=== PATIENT | female | born 1975 | race African-American/Black ===

== ENCOUNTER 2016-11-22 11:55 | Emergency (ER) ==
--- NOTE | 2016-11-22 12:53 | PROVIDER DOCUMENTATION ---
HPI-Respiratory General - General Chief Complaint: Cough Stated Complaint: COUGH/CONGESTION Time Seen by Provider: 11/22/16 12:41 Source: patient Allergies/Adverse Reactions: Patient Allergies Allergy/AdvReac Type Severity Reaction Status Date / Time ketorolac tromethamine * AdvReac Mild JITTERY Verified 11/22/16 12:45 [From Toradol] Home Medications: Home Medication List Medication Instructions Recorded Confirmed Last Taken Type Hydrocodone/APAP 7.5 mg/325 mg 1 each PO Q6H PRN PRN #20 tablet 10/05/16 Unknown Rx [[place]-7.5] Pantoprazole [Protonix] 40 mg PO DAILY@0700 #90 tablet 10/05/16 11/22/16 Unknown Rx Polyethylene Glycol 3350 [Miralax] 17 gm PO DAILY #0 powder, packet 10/05/16 Unknown Rx Sucralfate [Carafate] 1 gm PO 4XDAY #120 tablet 10/05/16 11/22/16 Unknown Rx Benzonatate [Tessalon Perle] 200 mg PO QHS #20 capsule 11/22/16 Unknown Rx Guaifenesin/Pseudoephedrne HCl 1 each PO BID #30 tab.er.12h 11/22/16 Unknown Rx [Mucinex D ER Tablet] Prednisone 20 mg PO DAILY #12 tablet 11/22/16 Unknown Rx - History of Present Illness-Resp Nature of Presenting Problem: 41 y/o BF c/o cough x 6 months. Pt states she is coughing up yellow/green sputum and is worse with laying down. States that she also has "knots" on the anterior portion of her chest. Denies any other sxs, including fever/chills. Denies any CP or cardiac hx. Review of Systems - Adult - REVIEW OF SYSTEMS - ADULT Constitutional: reports: no symptoms reported. denies: chills, fever Eyes: reports: no symptoms reported. denies: blurred vision, double vision Ears, Nose, Mouth & Throat: reports: no symptoms reported. denies: ear pain, nose pain Cardiovascular: reports: no symptoms reported. denies: chest pain, palpitations Respiratory: reports: see HPI, cough. denies: shortness of breath Gastrointestinal: reports: no symptoms reported. denies: abdominal pain, nausea , vomiting Genitourinary: reports: no symptoms reported. denies: dysuria, frequency Musculoskeletal: reports: no symptoms reported. denies: joint pain, joint swelling Integumentary: reports: no symptoms reported. denies: nail changes, rash Neurological: reports: no symptoms reported. denies: numbness, paresthesia Psychiatric: reports: no symptoms reported Endocrine: reports: no symptoms reported. denies: cold intolerance, heat intolerance Hematologic/Lymphatic: reports: no symptoms reported. denies: easy bruising, prolonged bleeding Allergic/Immunologic: reports: no symptoms reported All Other Systems: Reviewed and Negative Past History - Adult - PAST MEDICAL HISTORY-ADULT Review of Records: reports: Nursing Assessment Review, Medications Reviewed Major Childhood Illnesses: reports: denies history Cardiovascular: reports: HTN Respiratory: reports: denies history Gastrointestinal: reports: GERD Obstetrical/Gynecological: reports: fibroids, ovarian cysts Genitourinary: reports: denies history Musculoskeletal: reports: denies history Neurological: reports: Seizures/Epilepsy Psychiatric: reports: bipolar, psychiatric problems, schizophrenia, other ( polysubstance abuse) Endocrine/Immune: reports: anemia (Secondary to heavy menstrual cycles. ) Other Conditions: reports: denies history - PRIOR SURGERIES/PROCEDURES Surgical/Procedure History: reports: cholecystectomy, BTL, - PRIOR HOSPITALIZATIONS Prior Hospitalizations: reports: for other non-related - IMMUNIZATION STATUS Childhood Immunizations: See Nurse Assessment Flu Vaccine: See Nurse Assessment - FAMILY HISTORY Family History: reviewed, not pertinent - SOCIAL HISTORY Smoking: cigarettes, less than 1 pack/day Provider spent 3-5 mins advising pt. on dangers of tobacco.: Discussed manners to quit use, and f/u contacts for add'l counseling. Physical Exam-General - PHYSICAL EXAM-ADULT Initial Vital Signs Reviewed: Yes - CONSTITUTIONAL General Appearance: alert, mild distress - EYES Eyes: pink conjunctivae - HEAD, EARS, NOSE, MOUTH & THROAT HENMT: normocephalic/atraumatic - NECK Neck: supple, normal inspection - RESPIRATORY Respiratory: chest non-tender, lungs clear, normal breath sounds. negative: crackles, rales, rhonchi, stridor, wheezing - CARDIOVASCULAR Cardiovascular: regular rate, rhythm - MUSCULOSKELETAL Back Exam: normal inspection Extremity: normal gait - SKIN Integumentary: normal color, normal turgor, warm/dry - NEUROLOGIC Neurologic: negative: aphasia - PSYCHIATRIC Psych/Mental Status: normal mood/affect, normal thought content, normal thought process, oriented x 3 Progress - XRAY 1 XRAY Study: Chest Impression: See EMR Report (Negative, per Dr. Jackson) Departure - Departure Time of Disposition Order: 13:08 DIAGNOSIS: Cough Disposition: HOME 01 Certified Medical Emergency: Emergent Condition: Stable Additional Instructions: Take medications as directed. Follow up with PCP for further management. Stop smoking. ED Follow Up Instructions: You have been treated by a care provider in the Emergency Department. These instructions are being provided to you so you can have an understanding of how to care for yourself upon discharge. Upon discharge from the Emergency Department, you are responsible for making arrangements for follow-up care by a physician of your choice. Take all prescribed medications as directed. Return to the Emergency Department immediately for any new or worsening symptoms. You may call the Physician Referral phone number at [phone] to obtain a list of Physicians who are taking new patients. Prescriptions: Guaifenesin/Pseudoephedrne HCl [Mucinex D ER Tablet] 1 each PO BID #30 tab.er.12h Prednisone 20 mg PO DAILY #12 tablet Benzonatate [Tessalon Perle] 200 mg PO QHS #20 capsule Referrals: None,PCP [Primary Care Provider] - Attestation - Physician/ EVELYN Attestation Patient care was provided by Advanced Practice Provider:: Yes Advanced Practice Provider:: Layne Kim Advanced Practice Provider documentation review:: The Mid-level provider documentation, treatment plan and medical decision making was reviewed by the physician who agrees with all treatment and medical decision making by the P.
[2016-11-22 13:34] VITALS: BP 151/77
--- NOTE | 2016-11-22 13:36 | Diag Imaging Result Document ---
PROCEDURE NAME: CHEST-2 VIEWS - 11/22/2016 CHEST X-RAY, 2 VIEWS: COMPARISON: 07/06/2016. FINDINGS: The lungs are normally expanded and clear. Heart size and mediastinal contours are normal. No pneumothorax or pleural effusion. IMPRESSION: Negative exam.
== END 2016-11-22 13:33 | disposition home or self-care (01) ==
LOC: ED 11:55
DX: R05 Cough (principal); R09.81 Nasal congestion; R09.3 Abnormal sputum; R22.2 Localized swelling, mass and lump, trunk; I10 Essential (primary) hypertension; K21.9 Gastro-esophageal reflux disease without esophagitis; F17.210 Nicotine dependence, cigarettes, uncomplicated; Z79.899 Other long term (current) drug therapy; Z71.6 Tobacco abuse counseling; Z87.42 Personal history of other diseases of the female genital tract
CPT/HCPCS: 71020; 99283

== ENCOUNTER 2017-01-02 04:55 | Inpatient (IN) ==
[2017-01-02] MEDS ORDERED: PHENERGAN IV ONE (04:58)
[2017-01-02] MEDS ORDERED: SODIUM CHLORIDE 0.9% INJ ONE ×2 (04:58→07:47)
[2017-01-02] MEDS ORDERED: ZOFRAN IV ONE (04:58)
[2017-01-02] MEDS ORDERED: M.V.I.-12 10 ML, FOLIC ACID 1 MG, MAGNESIUM SULFATE 1 GM, THIAMINE 100 MG in NS 1,000 ML IV ONE (04:58)
[2017-01-02] MEDS ORDERED: OFIRMEV 1000 MG/ISOTONIC SOLN 1,000 MG/100 ML BOTTLE IV ONE (05:03)
--- NOTE | 2017-01-02 05:10 | PROVIDER DOCUMENTATION ---
HPI-Abdominal Pain/GI Problem - General Stated Complaint: abd pain Time Seen by Provider: 01/02/17 04:56 Source: patient, EMS Allergies/Adverse Reactions: Patient Allergies Allergy/AdvReac Type Severity Reaction Status Date / Time ketorolac tromethamine * AdvReac Mild JITTERY Verified 01/02/17 05:09 [From Toradol] Home Medications: Home Medication List Medication Instructions Recorded Confirmed Last Taken Type NK [No Home Medications] 01/02/17 01/02/17 Unknown History - History of Present Illness-ABD Nature of Presenting Problems: pt states she woke up at 0300 with epigastric pain and non stop wretching. No fevers. No cough or sore throat. No dysuria.She states she does not drink alochol any more and does not do drugs. No dysuria although she does have some back pain Review of Systems - Adult - REVIEW OF SYSTEMS - ADULT Constitutional: denies: chills, fever Eyes: denies: discharge Ears, Nose, Mouth & Throat: denies: ear pain, sinus problem, throat pain Cardiovascular: denies: chest pain Respiratory: denies: cough, shortness of breath Gastrointestinal: reports: abdominal pain, nausea, vomiting. denies: hematemesis, diarrhea Genitourinary: denies: dysuria, flank pain Musculoskeletal: reports: back pain Integumentary: denies: rash Neurological: denies: headache/migraines Psychiatric: reports: no symptoms reported Endocrine: reports: no symptoms reported Hematologic/Lymphatic: reports: no symptoms reported Allergic/Immunologic: reports: no symptoms reported All Other Systems: Reviewed and Negative Past History - Adult - PAST MEDICAL HISTORY-ADULT Review of Records: reports: Old Records Reviewed, Nursing Assessment Review, Medications Reviewed, Social history reviewed & non-contributory. Major Childhood Illnesses: reports: denies history Cardiovascular: reports: HTN Respiratory: reports: denies history Gastrointestinal: reports: GERD Obstetrical/Gynecological: reports: fibroids, ovarian cysts Genitourinary: reports: denies history Musculoskeletal: reports: denies history Neurological: reports: Seizures/Epilepsy Psychiatric: reports: bipolar, psychiatric problems, schizophrenia, other ( polysubstance abuse) Endocrine/Immune: reports: anemia (Secondary to heavy menstrual cycles. ) Other Conditions: reports: denies history - PRIOR SURGERIES/PROCEDURES Surgical/Procedure History: reports: cholecystectomy, BTL, - PRIOR HOSPITALIZATIONS Prior Hospitalizations: reports: for other non-related - IMMUNIZATION STATUS Childhood Immunizations: See Nurse Assessment Flu Vaccine: See Nurse Assessment - FAMILY HISTORY Family History: reviewed, not pertinent Physical Exam-General - PHYSICAL EXAM-ADULT Initial Vital Signs Reviewed: Yes - CONSTITUTIONAL General Appearance: appears well, alert, no apparent distress, anxious - EYES Eyes: pink conjunctivae. negative: scleral icterus - HEAD, EARS, NOSE, MOUTH & THROAT HENMT: normocephalic/atraumatic, TMs normal, pharynx normal - NECK Neck: non-tender, full range of motion, supple, normal inspection - RESPIRATORY Respiratory: chest non-tender, lungs clear, normal breath sounds, no pleuratic chest pain, no respiratory distress, no accessory muscle use - CARDIOVASCULAR Cardiovascular: regular rate, rhythm, no edema, no murmur - GASTROINTESTINAL (ABDOMEN) Abdominal Exam: normal bowel sounds, soft, no organomegaly, no pulsatile mass, tenderness (moderate epigastric). 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 II-XII nml as tested, grossly normal, no motor/sensory deficits - PSYCHIATRIC Psych/Mental Status: normal mood/affect, normal thought content, normal thought process, oriented x 3 Progress - PLAN OF CARE/RESULTS Progress/Plan/Lab Results: Orders Category Date Time Status ALCOHOL BLOOD Stat Lab 01/02/17 04:58 Ordered CBC WITH ELECTRONIC DIFF [HEME] Stat Lab 01/02/17 04:57 Uncollected CMP [COMPREHENSIVE METABOLIC PANEL] [CHEM] Stat Lab 01/02/17 04:57 Uncollected LIPASE [CHEM] Stat Lab 01/02/17 04:58 Uncollected MAGNESIUM [CHEM] Stat Lab 01/02/17 04:57 Uncollected UA [UA NIMS W/REFLEX CULT] [URINALYSIS] Stat Lab 01/02/17 05:03 Uncollected UDS [URINE DRUG SCREEN] Stat Lab 01/02/17 05:04 Uncollected Acetaminophen [Ofirmev 1000 mg/Isotonic Soln] Med 01/02/17 05:03 Ordered 1,000 mg in 100 ml IV NOW Mvi [M.v.i.-12] 10 ml Med 01/02/17 04:58 Active Folic Acid 1 mg Magnesium Sulfate 1 gm Thiamine 100 mg 0.9% Sodium Chloride Inj [Ns] 1,000 ml IV NOW Ondansetron [Zofran] Med 01/02/17 04:58 Discontinued 8 mg IV NOW ONE Promethazine [Phenergan] Med 01/02/17 04:58 Discontinued 25 mg IV NOW ONE Sodium Chloride 0.9% Med 01/02/17 04:58 Discontinued 10 ml INJ NOW ONE Result Diagrams: 01/02/17 05:40 01/02/17 05:40 Departure - Departure Time of Disposition Decision: 07:49 DIAGNOSIS: Anemia, Abdominal pain Disposition: ADMITTED INPATIENT 09 Certified Medical Emergency: Emergent Condition: Stable
[2017-01-02 06:06] LABS: URINE CULTURE NEEDED? NO; URINE MICRO REVIEW NEEDED? NO; URINE SOURCE CLEAN CATCH
[2017-01-02 06:13] LABS: BILIRUBIN URINE NEGATIVE (NEGATIVE); BLOOD URINE LARGE (NEGATIVE); COLOR ORANGE; GLUCOSE URINE NEGATIVE (NEGATIVE); LEUKOCYTES URINE NEGATIVE (NEGATIVE); NITRITE URINE NEGATIVE (NEGATIVE); PH URINE 8.5; PROTEIN URINE 50 mg/dL (NEGATIVE); SP GRAVITY URINE 1.011; TURBIDITY URINE TURBID (CLEAR); UROBILINOGEN URINE NORMAL (NORMAL)
[2017-01-02 06:15] LABS: UR EPITHELIAL CELLS <10 /HPF (<10); URINE BACTERIA NEGATIVE /HPF; URINE RBC TNTC /HPF (<10); URINE WBC <10 /HPF (<10)
[2017-01-02 06:30] LABS: UR AMPHETAMINES QUAL NONE DETECTED (NONE DETECT); UR BARBITUATES QUAL NONE DETECTED (NONE DETECT); UR BENZODIAZEPIN QUAL NONE DETECTED (NONE DETECT); UR CANNABINOIDS QUAL PRESUMPTIVE POSITIVE (NONE DETECT); UR COCAINE QUAL NONE DETECTED (NONE DETECT); UR METHADONE QUAL NONE DETECTED (NONE DETECT); UR OPIATES QUAL NONE DETECTED (NONE DETECT); UR OXYCODONE QUAL NONE DETECTED (NONE DETECT); UR PCP QUAL NONE DETECTED (NONE DETECT)
[2017-01-02 06:35] LABS: BASO% 0.8 % (0.0-0.8); EOS% 4.5 % (0.0-10.0); HEMATOCRIT 22.9 % (37.0-47.0); HEMOGLOBIN 6.3 g/dL (12.0-16.0); LYMPH# 1.48 X1000 (1.2-3.4); LYMPH% 22.3 % (20.5-51.1); MANUAL DIFF NEEDED? NO; MCH 18.1 PG (27-31); MCHC 27.5 g/dL (33-37); MCV 65.6 FL (81-99); MONO# 0.47 X1000 (0.11-0.59); MONO% 7.1 % (1.7-9.3); MPV 10.4 FL (7.4-10.4); NEUT% 65.3 % (42.2-75.2); PLT 280 X1000 (130-400); RBC 3.49 XMIL (4.2-5.4)
[2017-01-02 06:36] LABS: MAGNESIUM 1.9 mg/dL (1.5-2.7)
[2017-01-02 06:42] LABS: AGAP 15; ALBUMIN 3.8 g/dL (3.5-5.0); ALKALINE PHOSPHATASE 77 U/L (32-104); BUN 9 mg/dL (8-22); CALCIUM 8.7 mg/dL (8.8-10.2); CHLORIDE 98 mmol/L (98-107); COSMO 274; GOT 19 U/L (10-30); GPT 11 U/L (10-36); POTASSIUM 3.9 mmol/L (3.5-5.1); SODIUM 137 mmol/L (136-145); TCO2 24 mmol/L (25-35); TOTAL BILIRUBIN 0.16 mg/dL (0.20-1.00); TOTAL PROTEIN 7.4 g/dL (6.3-8.3)
[2017-01-02] MEDS ORDERED: PROTONIX IV ONE (07:47)
[2017-01-02] MEDS ORDERED: TYLENOL PO PRN (08:31)
[2017-01-02] MEDS ORDERED: ZOFRAN IV PRN (08:31)
[2017-01-02] MEDS: NS 1,000 ML IV SCH ×2 (09:41→18:37)
[2017-01-02] MEDS: NORCO-7.5 PO PRN (09:56)
[2017-01-02] MEDS: PRILOSEC PO SCH ×2 (11:04→20:43)
[2017-01-02] MEDS: MORPHINE IV PRN ×4 (13:09→22:41)
[2017-01-02] MEDS: PHENERGAN IV PRN ×3 (13:10→22:41)
[2017-01-02] MEDS: SODIUM CHLORIDE 0.9% INJ PRN ×2 (13:10→17:48)
--- NOTE | 2017-01-02 13:48 | HISTORY AND PHYSICAL ---
DATE OF ADMISSION: 01/02/2017 SUBJECTIVE: This is a 40-year-old, who presented with abdominal pain,. Periumbilical epigastric pain, but more periumbilical. She is a 40-year-old with a history of gastroesophageal reflux disease, gastritis, hypertension, iron deficiency anemia, apparently heavy menstrual bleeding. She sees a METALS SALES REPRESENTATIVE here in [place]. She is also followed by Dr. Brian Munoz, and she is supposed to have a hysterectomy. She is also supposed to have a colonoscopy. Apparently smokes pretty heavy and still smoking marijuana, and she has been doing this for last 10 years. Drinks about a beer every other day. She denies any weight loss. Bowels apparently are moving with no blood in the stool. No bloody emesis. She has been treated for what they thought was cyclic vomiting syndrome secondary to marijuana in the past. PAST MEDICAL HISTORY: As noted above. Gastroesophageal reflux disease, gastritis, uterine fibroids, hypertension, iron deficiency anemia, chronic anemia, acute blood loss anemia as well which is due to polymenorrhea, seizure disorder, bipolar disorder, polysubstance abuse. She has had multiple [facility] admissions. PAST SURGICAL HISTORY: She has had 3 C-sections, tubal ligation and cholecystectomy. SOCIAL HISTORY: Smokes 2-3 cigarettes a day. She is still actively smoking marijuana. States that she drinks about a beer every other day and more on the weekends. FAMILY HISTORY: Iron deficiency anemia according to the daughter, thyroid disorder, and lung cancer in her family members. ALLERGIES: Toradol. REVIEW OF SYSTEMS: General: Just basically abdominal pain and not been having as much nausea, just more abdominal pain. Feels very weak. She presented and hemoglobin was 6. No focal neurologic changes. No respiratory trouble. Cardiovascular: No chest pain or tachy palpitation. GI/: As above. Endocrinologic/Hematologic: No significant history. PHYSICAL EXAMINATION: Vital Signs: Temperature 97.8 degrees, pulse 99, respirations 22, blood pressure 172/81, O2 saturation 100%. HEENT: Pupils are equal and round. Conjunctivae with pallor; gums also with pallor. Lungs: Clear in all lung abreu. Cardiovascular exam: Regular rhythm and rate without murmur or S3. Weight 145 pounds. Skin: Otherwise warm and dry. No rashes. Lungs: Clear in all lung abreu. Abdomen: Soft. MEDICATIONS: She received some Ofirmev or IV Tylenol for pain. Got multivitamin infusion and some ondansetron and promethazine for nausea before I had seen her. LABS: White count 6650, hematocrit 22 with an MCV of 65, platelet count 280,000. Sodium 137, potassium 3.9, chloride 98, BUN 9, creatinine 0.7, calcium is 8.7. Urinalysis positive for cannabinoids, negative for opiates, oxycodone, methadone, barbiturates, phencyclidine, amphetamines, and plasma ethanol. Urinalysis with cmi-[id number]-qs-count red blood cells, negative for bacteria that was on a clean catch. CURRENT MEDICATIONS: No home medicines. ASSESSMENT AND PLAN: 1. Anemia. I suspect this is from polymenorrhea, uterine fibroids. She is apparently supposed to get a hysterectomy at some point, but also could be some gastrointestinal blood loss. I think she was also supposed to get a colonoscopy. I believe Dr. Keys saw her last time she was here. I will see if he will help us as well today, and see what we need to do about gynecology follow up. 2. Nausea, multifactorial. Very well could have some gastritis, even peptic ulcer disease, and she uses cannabinoids or marijuana. 3. Gastroesophageal reflux. Noticed that when she was here last time Dr. Arambula was involved. She had acute kidney injury at that time. Renal function appears to be good at this point, based on her creatinine/BUN. Will put her on intravenous Protonix, start some Carafate, and ask Dr. Keys to help. cc: Ankit Andrade MD
[2017-01-03] MEDS: MORPHINE IV PRN ×5 (02:15→22:28)
[2017-01-03] MEDS: PRILOSEC PO SCH ×3 (05:49→20:20)
[2017-01-03] MEDS: PHENERGAN IV PRN ×4 (05:49→20:20)
[2017-01-03] MEDS: NS 1,000 ML IV SCH ×4 (05:53→15:14)
[2017-01-03 06:09] LABS: BASO% 0.5 % (0.0-0.8); EOS% 1.3 % (0.0-10.0); HEMATOCRIT 22.8 % (37.0-47.0); HEMOGLOBIN 6.3 g/dL (12.0-16.0); LYMPH# 2.22 X1000 (1.2-3.4); LYMPH% 28.1 % (20.5-51.1); MANUAL DIFF NEEDED? NO; MCH 18.1 PG (27-31); MCHC 27.6 g/dL (33-37); MCV 65.5 FL (81-99); MONO% 8.8 % (1.7-9.3); NEUT% 61.3 % (42.2-75.2); PLT 281 X1000 (130-400); RBC 3.48 XMIL (4.2-5.4)
[2017-01-03 06:15] LABS: INR 1.04; PTT 24.5 Seconds (22.0-36.0)
[2017-01-03 06:28] LABS: AGAP 13; ALBUMIN 3.5 g/dL (3.5-5.0); ALKALINE PHOSPHATASE 70 U/L (32-104); BUN 7 mg/dL (8-22); CALCIUM 8.7 mg/dL (8.8-10.2); CHLORIDE 102 mmol/L (98-107); COSMO 275; GOT 20 U/L (10-30); GPT 10 U/L (10-36); MAGNESIUM 2.1 mg/dL (1.5-2.7); POTASSIUM 3.4 mmol/L (3.5-5.1); SODIUM 139 mmol/L (136-145); TCO2 24 mmol/L (25-35); TOTAL BILIRUBIN 0.29 mg/dL (0.20-1.00); TOTAL PROTEIN 6.6 g/dL (6.3-8.3)
--- NOTE | 2017-01-03 07:32 | EKG Report ---
Test Performed on : 01/03/2017 06:57:57 AM Test Reason : chest pain Blood Pressure : / mmHG Vent. Rate : 067 BPM Atrial Rate : 067 BPM P-R Int : 158 ms QRS Dur : 080 ms QT Int : 404 ms P-R-T Axes : 070 033 051 degrees QTc Int : 426 ms Normal sinus rhythm. Normal ECG When compared with ECG of 04-AUG-2016 00:06, No significant change was found Confirmed by Vicki BOBO, Claude Stanley ([id number]) on 01/03/2017 6:38:57 PM
[2017-01-03] MEDS ORDERED: ULTRAM PO PRN (08:48)
[2017-01-03] MEDS: SODIUM CHLORIDE 0.9% INJ PRN ×3 (10:13→20:20)
--- NOTE | 2017-01-03 10:15 | PROGRESS NOTE ---
DATE: 01/03/2017 SUBJECTIVE: Ms. Narda Eason is a 41-year-old, female, still complains of some periumbilical abdominal pain and cramping. She is requesting a change in her pain medication regimen. We will downgrade her pain medication regimen. She will receive 2 units of packed red blood cells today for acute blood loss anemia. She has no other complaints. OBJECTIVE: Vital Signs: Temperature is 98.4 degrees, heart rate 78, respiratory rate 17, blood pressure 152/68, O2 saturation 100% on room air. General: Ms. Narda Eason is a 41-year-old, female in no acute distress. Able to answer all questions appropriately. Cardiovascular: S1, S2. Regular rate and rhythm. No rubs, gallops, murmurs. Pulmonary: Clear to auscultate. Bilateral breath sounds. No accessory muscle use or work of breathing noted. Gastrointestinal: Abdomen soft, round, paraumbilical tenderness. Positive bowel sounds x4. Extremities: No edema noted, +2 dorsalis and radial pulses. LABORATORY DATA: White blood cells 7000, hemoglobin 6.3, hematocrit 22.8, platelet count 281,000. INR 1.04. Sodium 139, potassium 3.4, BUN 7, creatinine 0.8, glucose 84, calcium 8.7, albumin 3.5. TSH of 1.10. ASSESSMENT AND PLAN: 1. Acute blood loss anemia secondary to polymenorrhea and there were uterine fibroids and she is supposed to have a hysterectomy. She did have some hematuria but this could have been mixed with blood from the uterus. There is a question as to whether there could be gastrointestinal blood loss. We will check 1st stool for blood. Dr. Keys has been consulted. 2. Intractable nausea with vomiting. This is likely cyclic vomiting secondary to daily marijuana use. 3. Gastroesophageal reflux disease. Continue with proton pump inhibitor, and Carafate. Dictated by IRENE Currie for Ankit Andrade MD cc: IRENE Currie MD
[2017-01-03] MEDS: NORCO-7.5 PO PRN ×2 (12:19→18:33)
--- NOTE | 2017-01-03 13:49 | CONSULTATION ---
DATE OF CONSULTATION: 01/02/2017 REASON FOR REFERRAL: Abdominal pain, nausea, vomiting, anemia. HISTORY OF PRESENT ILLNESS: This is a 41-year-old, female, who we have seen on 2 different hospitalizations. She has never followed up with us in the office. She presents this time with abdominal pain. Reports mid umbilical pain that she states is severe. She has episodes of nausea and vomiting. We have seen her for similar problems in the past. She does use marijuana on a frequent basis. She does drink alcohol. She states last marijuana use was over the weekend. She denies any visible blood in her stool or black stools. No hematemesis. She has a history of anemia, and on admission she is severely anemic. She will be getting 2 units of packed red blood cells. We had done an EGD in June, for anemia and melena. Findings showed mild esophagitis, otherwise normal EGD. She has never had a colonoscopy. She has a history of heavy menstrual bleeding/uterine fibroids and has been followed by her SPECIAL EDUCATION SECRETARY. There are plans for hysterectomy in the near future per patient. PAST MEDICAL HISTORY: 1. GERD. 2. Gastritis. 3. Uterine fibroids. 4. Hypertension. 5. Chronic anemia. 6. Polymenorrhea. 7. History of seizure disorder. 8. Bipolar disorder. 9. Polysubstance abuse. PAST SURGICAL HISTORY: 1. x3. 2. History of tubal ligation. 3. History of cholecystectomy. ALLERGIES: Toradol causing jitteriness. HOME MEDICATIONS: None listed. SOCIAL HISTORY: She smokes 2-3 cigarettes a day. She is still smoking marijuana. She still continues to drink. FAMILY HISTORY: For anemia, thyroid disorders, history of lung cancer. REVIEW OF SYSTEMS: Vital Signs: Temperature 98.4 degrees, pulse 78, respirations 17, blood pressure 152/68. Generally: At the time of my exam, patient was in the holding room in the emergency room. She was reporting severe abdominal pain. She was crying. She was about to be moved up to the floor. She had reported severe abdominal pain and states the pain medication was not helping. She is also having episodes of nausea and dry heaves. Respiratory : Lung sounds essentially clear. Cardiovascular: Regular rate and rhythm. Abdomen: With reported pain with palpation. Otherwise, soft with positive bowel sounds. DIAGNOSTIC RESULTS/LABORATORY: Hematology white count 7.91, hemoglobin 6.3, hematocrit 22.8. MCV 65.5, platelets 281,000, coagulation ProTime 11.0, INR 1.04, PTT 24.5, chemistry sodium 139, potassium 3.4, chloride 102, CO2 24, BUN 7, creatinine 0.8, glucose 84, calcium 8.7, magnesium 2.1, total bilirubin 0.29, AST 28, ALT 10, alkaline phosphatase 70, lipase 24. TSH 1.10. Urinalysis showed protein and blood in the urine. Toxicology was positive for cannabinoids. ASSESSMENT AND PLAN: 1. Abdominal pain. 2. Nausea and vomiting. 3. Anemia. 4. Polymenorrhea with uterine fibroids. PLAN: Continue supportive care and symptomatic treatment. Her nausea and cyclical vomiting is most likely related to cannabinoid use. She had an EGD in June, that showed mild esophagitis. I have discussed with the patient about avoiding marijuana and alcohol. She has been to rehab on multiple occasions. She states she wants to go back. Continue PPI. Transfuse packed red blood cells as ordered. We will plan for a colonoscopy. Anemia most likely related to polymenorrhea and she has already seen her SPECIAL EDUCATION SECRETARY for possible hysterectomy. I have discussed this case with Dr. Keys. Further plans to be made by him. Thank you for this consultation. Dictated by IRENE Parrish for Manny Keys MD cc: IRENE Haddad MD [facility]
[2017-01-03] MEDS ORDERED: GOLYTELY PO ONE (14:00)
[2017-01-04] MEDS: PHENERGAN IV PRN ×3 (00:07→09:02)
[2017-01-04] MEDS: SODIUM CHLORIDE 0.9% INJ PRN ×3 (00:07→09:02)
[2017-01-04] MEDS: NORCO-7.5 PO PRN ×2 (00:07→14:00)
[2017-01-04] MEDS: NS 1,000 ML IV SCH ×3 (00:07→12:04)
[2017-01-04] MEDS: MORPHINE IV PRN ×2 (04:41→10:29)
[2017-01-04 06:23] LABS: BASO% 0.6 % (0.0-0.8); EOS# 0.33 X1000 (0.0-0.7); EOS% 5.1 % (0.0-10.0); HEMATOCRIT 32.2 % (37.0-47.0); HEMOGLOBIN 9.5 g/dL (12.0-16.0); LYMPH# 2.06 X1000 (1.2-3.4); LYMPH% 31.7 % (20.5-51.1); MANUAL DIFF NEEDED? NO; MCH 20.9 PG (27-31); MCHC 29.5 g/dL (33-37); MCV 70.9 FL (81-99); MONO# 0.55 X1000 (0.11-0.59); MONO% 8.5 % (1.7-9.3); MPV 9.4 FL (7.4-10.4); NEUT% 54.1 % (42.2-75.2); PLT 256 X1000 (130-400); RBC 4.54 XMIL (4.2-5.4)
[2017-01-04 06:50] LABS: AGAP 13; BUN 5 mg/dL (8-22); CALCIUM 8.6 mg/dL (8.8-10.2); CHLORIDE 101 mmol/L (98-107); COSMO 274; POTASSIUM 3.7 mmol/L (3.5-5.1); SODIUM 139 mmol/L (136-145); TCO2 25 mmol/L (25-35)
[2017-01-04 07:28] VITALS: BP 161/93
[2017-01-04] MEDS: PRILOSEC PO SCH (07:37)
[2017-01-04] MEDS ORDERED: ATIVAN IV PRN (08:55)
[2017-01-04] MEDS ORDERED: DULCOLAX PR ONE (09:23)
[2017-01-04] MEDS ORDERED: REGLAN PO ONE (09:25)
--- NOTE | 2017-01-04 10:42 | PROGRESS NOTE ---
DATE: 01/04/2017 SUBJECTIVE: Ms. Eason is sitting up. She feels better, abdominal pain better. She is trying to get her preparation. So far, she has not had much in the way of bowel activity. She is trying to get prepared for a colonoscopy. OBJECTIVE: Vital Signs: Afebrile. Temperature 98.2 degrees, pulse 84, respirations 18, blood pressure 161/93. HEENT: Pupils are equal and round. Lungs: Clear in all lung abreu. Cardiovascular: Regular rhythm and rate, without murmur or S3. Abdomen: Soft. Skin: Warm and dry. URINE OUTPUT,: 7 L. LABORATORY: Today, white count 6500, hematocrit 32 and yesterday was 22. Hemoglobin 9.5 after receiving some blood, and yesterday was 6.3. Sodium 139, potassium 3.7, chloride 101, bicarbonate 25, BUN 5, creatinine 0.7. ASSESSMENT AND PLAN: 1. Abdominal pain. 2. Blood-loss anemia. Suspect most of this is from polymenorrhea. She had an EGD done back in June 2016 that showed mild esophagitis and so colonoscopy is planned today. I have discussed with her about avoiding marijuana and alcohol, as she has been to rehabilitation on many occasions. Continue her PPI. We transfused her 2 units of packed red blood cells yesterday. Ultimately, we need to get her set up for a hysterectomy, as well, as she has apparently uterine fibroids and polymenorrhea. Her orders are reviewed and I do not see any change at this point. She wants something for her panic attacks. I will let her have Ativan p.r.n. cc: Ankit nAdrade MD
--- NOTE | 2017-01-04 21:10 | DISCHARGE SUMMARY ---
ADMISSION DATE: 01/02/2017 DISCHARGE DATE: 01/04/2017 HISTORY AND HOSPITAL COURSE: This is a 40-year-old who presented with periumbilical epigastric pain, had history of gastroesophageal reflux, history of gastritis, hypertension, iron-deficiency anemia, apparently has uterine fibroids followed by Dr. Brian Munoz. She states she was supposed to get a colonoscopy as an outpatient, has not done it yet. She was also supposed to get a hysterectomy at some point because of her polymenorrhea. She presented with anemia, abdominal cramping, and we gave her 2 units of packed red blood cells. She attempted to prep for colonoscopy, however, prep was not complete and unable to do, so she wanted to get this as an outpatient and requested to go home. She was seen by Gastroenterology, Dr. Reyes. She has been seen in two different hospitalizations, followed by them in the office, presented at the time with abdominal pains. Reports mid umbilical pains, severe, episodes of nausea and vomiting. Was seen for similar problems in the past. She does use marijuana frequently and states she does drink alcohol. Last marijuana was over the weekend. Denies any visible blood in stool, black stools. No hematemesis. History of anemia and at the present time severely anemic. I gave her 2 units of packed red blood cells. As stated, was unable to prep for colonoscopy and wanted to go home. Will discharge her home. I had a discussion with her about the effects of marijuana, warned her to stop the marijuana and drinking alcohol. She will go home on Prilosec, which I will have her on 40 mg a day. She is to follow up with her primary care physician and Dr. Reyes. cc: Ankit Andrade MD
== END 2017-01-04 14:38 | disposition home or self-care (01) ==
LOC: ED 04:55 → SUATTDRO 08:16 → EDIPHOLD 08:16 → 4N 11:19
PROVIDERS: ATTEND Emergency Medicine

== ENCOUNTER 2018-10-25 18:27 | Inpatient (IN) ==
[2018-10-25 19:17] LABS: BASO# 0.04 X1000 (0.0-0.2); BASO% 0.6 % (0.0-0.8); EOS# 0.13 X1000 (0.0-0.7); EOS% 1.9 % (0.0-10.0); HEMATOCRIT 22.9 % (37.0-47.0); HEMOGLOBIN 6.3 g/dL (12.0-16.0); LYMPH# 2.04 X1000 (1.2-3.4); LYMPH% 29.6 % (20.5-51.1); MCH 17.9 PG (27-31); MCHC 27.5 g/dL (33-37); MCV 65.2 FL (81-99); MONO# 0.53 X1000 (0.11-0.59); MONO% 7.7 % (1.7-9.3); MPV 9.2 FL (7.4-10.4); NEUT# 4.15 X1000 (1.4-6.5); NEUT% 60.2 % (42.2-75.2); PLT 383 X1000 (130-400); RBC 3.51 XMIL (4.2-5.4); WBC 6.89 X1000 (4.8-10.8)
[2018-10-25 19:43] LABS: ANISOCYTOSIS 2+; EOS 3 % (1-10); LYMPHS 27 % (21-51); MONO 3 % (1-9); NRBC 1 % (0-0); SEGS 67 % (42-75)
[2018-10-25 19:44] LABS: HYPOCHROM 3+; MICROCYTOSIS 2+; POLYCHROM 1+
[2018-10-25 19:45] LABS: AGAP 14; ALBUMIN 4.1 g/dL (3.5-5.0); ALKALINE PHOSPHATASE 81 U/L (32-104); BUN 11 mg/dL (8-22); CHLORIDE 99 mmol/L (98-107); COSMO 267; CREATININE 0.7 mg/dL (0.5-0.9); ESTIMATED GFR > 60; GLUCOSE 94 mg/dL (70-104); GOT 17 U/L (10-30); GPT 10 U/L (10-36); POTASSIUM 3.9 mmol/L (3.5-5.1); SODIUM 134 mmol/L (136-145); TCO2 22 mmol/L (25-35)
[2018-10-25 19:46] LABS: LARGE PLATELETS 2+; OVALOCYTES OCCASIONAL; POIKILOCYTOSIS OCCASIONAL
[2018-10-25 21:04] LABS: OCCULT BLOOD 1 NEGATIVE (NEGATIVE)
[2018-10-25] MEDS ORDERED: BENADRYL PO ONE (21:10)
[2018-10-25] MEDS ORDERED: TYLENOL PO ONE (21:10)
[2018-10-25] MEDS ORDERED: BENADRYL ONE (21:13)
[2018-10-25] MEDS ORDERED: NS 1,000 ML IV SCH (22:45)
--- NOTE | 2018-10-26 02:59 | PROVIDER DOCUMENTATION ---
This chart was entered by Ellen Gonzalez Scribe, acting as scribe for Fortino Gambino MD. HPI-General Adult - General Chief Complaint: General Adult Stated Complaint: WEAKNESS Time Seen by Provider: 10/25/18 20:30 Source: patient Allergies/Adverse Reactions: Patient Allergies Allergy/AdvReac Type Severity Reaction Status Date / Time No Known Allergies Allergy Verified 10/18/17 10:39 Home Medications: Home Medication List Medication Instructions Recorded Confirmed Last Taken Type NK [No Home Medications] 05/27/18 10/25/18 Unknown History - History of Present Illness -Gen Adult Nature of Presenting Problems: 43 yof presents to ed w/ lower pelvic/abd pain. has 6x4 cm fibroid in lower rt abd/pelvic area. pt has hx of 7 blood transfusions, goes through 20 pads during monthly period. LMP oct 17. pt fell on knees earlier. pt was supposed to get hysterectomy but missed appt. RN Carmina was business specialist for rectal exam. patient report lightheadedness and weakness. Review of Systems - Adult - REVIEW OF SYSTEMS - ADULT Constitutional: reports: no symptoms reported Eyes: reports: no symptoms reported Ears, Nose, Mouth & Throat: reports: no symptoms reported Cardiovascular: reports: no symptoms reported Respiratory: reports: no symptoms reported Gastrointestinal: reports: abdominal pain (rlq, pelvic area). denies: diarrhea , nausea, vomiting Genitourinary: reports: no symptoms reported Musculoskeletal: reports: no symptoms reported Integumentary: reports: no symptoms reported Neurological: reports: no symptoms reported Endocrine: reports: no symptoms reported Hematologic/Lymphatic: reports: no symptoms reported Past History - Adult - PAST MEDICAL HISTORY-ADULT Review of Records: reports: Old Records Reviewed, Nursing Assessment Review, Medications Reviewed, Social history reviewed & non-contributory. Major Childhood Illnesses: reports: denies history Cardiovascular: reports: HTN, hyperlipidemia Respiratory: reports: COPD Gastrointestinal: reports: GERD Obstetrical/Gynecological: reports: fibroids, ovarian cysts Genitourinary: reports: denies history Musculoskeletal: reports: chronic pain, fibromyalgia Neurological: reports: Seizures/Epilepsy Psychiatric: reports: bipolar, psychiatric problems, schizophrenia, other ( polysubstance abuse, panic attacks) Endocrine/Immune: reports: anemia, Diabetes (borderline) Other Conditions: reports: denies history - PRIOR SURGERIES/PROCEDURES Surgical/Procedure History: reports: cholecystectomy, BTL, - PRIOR HOSPITALIZATIONS Prior Hospitalizations: reports: for other non-related - IMMUNIZATION STATUS Childhood Immunizations: See Nurse Assessment Flu Vaccine: See Nurse Assessment - FAMILY HISTORY Family History: reviewed, not pertinent - SOCIAL HISTORY Smoking: cigarettes, greater than 1 pack/day Provider spent 3-5 mins advising pt. on dangers of tobacco.: Discussed manners to quit use, and f/u contacts for add'l counseling. Substance Use: alcohol Alcohol Use Frequency: occasionally (weekends) Physical Exam-General - PHYSICAL EXAM-ADULT Initial Vital Signs Reviewed: Yes - CONSTITUTIONAL General Appearance: appears well, alert, no apparent distress - EYES Eyes: PERRL/EOMI, pale conjunctivae - HEAD, EARS, NOSE, MOUTH & THROAT HENMT: normocephalic/atraumatic, moist mucous membranes, normal ENT inspection - NECK Neck: non-tender, full range of motion, supple - RESPIRATORY Respiratory: chest non-tender, lungs clear, normal breath sounds - CARDIOVASCULAR Cardiovascular: normal peripheral pulses, regular rate, rhythm - GASTROINTESTINAL (ABDOMEN) Abdominal Exam: normal bowel sounds, soft, mass (6x4 cm mass in lower abdomen pelvic area). negative: distended, guarding, rigid - GENITOURINARY Female Genitalia/Pelvic Exam: deferred Rectal Exam: normal exam, normal rectal tone. negative: hemorrhoids, mass, tenderness - LYMPHATIC Lymphatic: no adenopathy - MUSCULOSKELETAL Extremity: normal range of motion, normal inspection - SKIN Integumentary: normal turgor, warm/dry, pallor - NEUROLOGIC Neurologic: grossly normal - PSYCHIATRIC Psych/Mental Status: normal mood/affect, normal thought content, normal thought process, oriented x 3 Progress - PLAN OF CARE/RESULTS Progress/Plan/Lab Results: Vital Signs - 8 hr 10/25/18 18:52 10/25/18 20:34 Temperature 98.8 F Pulse Rate 90 86 Respiratory Rate 16 18 Blood Pressure 138/84 149/84 O2 Sat by Pulse Oximetry 100 100 Laboratory Results - last 24 hr 10/25/18 10/25/18 10/25/18 19:00 19:00 19:00 WBC 6.89 RBC 3.51 L Hgb 6.3 L Hct 22.9 L MCV 65.2 L MCH 17.9 L MCHC 27.5 L RDW Std Deviation 22.0 H Plt Count 383 MPV 9.2 Immature Gran % (Auto) 0.0 Neut % (Auto) 60.2 Lymph % (Auto) 29.6 [place] % (Auto) 7.7 Eos % (Auto) 1.9 Baso % (Auto) 0.6 Immature Gran # (Auto) 0.00 Neut # (Auto) 4.15 Lymph # (Auto) 2.04 [place] # (Auto) 0.53 Eos # (Auto) 0.13 Baso # (Auto) 0.04 Segmented Neutrophils 67 Lymphocytes 27 Monocytes 3 Eosinophils 3 Nucleated RBCs 1 H Hypochromia 3+ Large Platelets 2+ Polychromasia 1+ Poikilocytosis OCCASIONAL Anisocytosis 2+ Microcytosis 2+ Macrocytosis 1+ Ovalocytes OCCASIONAL Sodium Potassium Chloride Carbon Dioxide Anion Gap BUN Creatinine Estimated GFR/1.73 m2 BUN/Creatinine Ratio Glucose Calculated Osmolality Calcium Total Bilirubin AST ALT Alkaline Phosphatase Creatine Kinase 97 Troponin T < 0.010 Total Protein Albumin Globulin Albumin/Globulin Ratio Blood Type Antibody Screen 10/25/18 10/25/18 19:00 19:00 WBC RBC Hgb Hct MCV MCH MCHC RDW Std Deviation Plt Count MPV Immature Gran % (Auto) Neut % (Auto) Lymph % (Auto) [place] % (Auto) Eos % (Auto) Baso % (Auto) Immature Gran # (Auto) Neut # (Auto) Lymph # (Auto) [place] # (Auto) Eos # (Auto) Baso # (Auto) Segmented Neutrophils Lymphocytes Monocytes Eosinophils Nucleated RBCs Hypochromia Large Platelets Polychromasia Poikilocytosis Anisocytosis Microcytosis Macrocytosis Ovalocytes Sodium 134 L Potassium 3.9 Chloride 99 Carbon Dioxide 22 L Anion Gap 14 BUN 11 Creatinine 0.7 Estimated GFR/1.73 m2 > 60 BUN/Creatinine Ratio 16 Glucose 94 Calculated Osmolality 267 Calcium 9.0 Total Bilirubin 0.20 AST 17 ALT 10 Alkaline Phosphatase 81 Creatine Kinase Troponin T Total Protein 7.0 Albumin 4.1 Globulin 3.0 Albumin/Globulin Ratio 1.0 Blood Type O POSITIVE Antibody Screen NEGATIVE Orders Category Date Time Status Nursing- Obtain EKG once Care 10/25/18 18:57 Active CBC WITH DIFF [HEME] Stat Lab 10/25/18 19:00 Completed CK PROFILE [SP CHEM] Stat Lab 10/25/18 19:00 Completed COMPREHENSIVE METABOLIC PANEL [CHEM] Stat Lab 10/25/18 19:00 Completed OCCULT BLOOD SCREEN STOOL PL Stat Lab 10/25/18 20:50 Uncollected TROPONIN T Stat Lab 10/25/18 19:00 Completed TYPE & SCREEN [BBK] Stat Lab 10/25/18 19:00 Completed TYPE & SCREEN [BBK] Stat Lab 10/25/18 20:50 Uncollected EKG [EKG] Stat Ther 10/25/18 18:57 Ordered Patient care, assessment and plan discussed with the attending physician Dr. Johnathan valentine and he agree with the plan as documented. Result Diagrams: 10/25/18 19:00 10/25/18 19:00 - CONSULTS/PCP/HOSPITALIST Notification #1 *Consult/PCP/Hospitalist*: Dr. Antonio Time Discussed: 21:42 Consult Disposition: Admit (Accepted.) Departure - Departure Date of Disposition Decision: 10/25/18 Time of Disposition Decision: 21:44 DIAGNOSIS: Anemia Qualifiers: Anemia type: other cause Other causes of anemia: other cause, not classified Qualified Code(s): D64.89 - Other specified anemias Disposition: ADMITTED INPATIENT 09 Certified Medical Emergency: Emergent Condition: Stable - Critical Care Note This patient required my direct & personal management of CC.: No Attestation - Physician/ EVELYN Attestation Patient care was provided by Advanced Practice Provider:: No The physician spent face to face time with patient:: Yes Advanced Practice Provider documentation review:: Supervising physician onsite and consulted in the evaluation and care of this patient. The physician did have a face to face encounter with the patient. This chart was documented by the indicated scribe, (Ellen Gonzalez Scribe) and accurately reflects the services I performed and decisions made by me, Fortino Gambino MD, as attested by the provider's signature.
[2018-10-26] MEDS: TYLENOL PO PRN ×2 (04:58→13:48)
--- NOTE | 2018-10-26 06:49 | EKG Report ---
Test Performed on : 10/25/2018 6:53:41 PM Test Reason : GENERALIZED WEAKNESS Blood Pressure : / mmHG Vent. Rate : 086 BPM Atrial Rate : 086 BPM P-R Int : 164 ms QRS Dur : 080 ms QT Int : 374 ms P-R-T Axes : 074 047 059 degrees QTc Int : 447 ms Normal sinus rhythm. Normal ECG When compared with ECG of 27-MAY-2018 20:06, No significant change was found Unconfirmed Result
--- NOTE | 2018-10-26 11:58 | HISTORY AND PHYSICAL ---
PRIMARY CARE PHYSICIAN: None. CHIEF COMPLAINT: Weakness and fatigue. She has a known 6 x 4 cm fibroid to her lower right abdomen and pelvic area. HISTORY OF PRESENTING ILLNESS: This is a 43-year-old female who presents to [facility] ER with complaints of increased weakness, fatigue, and no energy. She has a known 6 x 4 cm fibroid in the lower right abdomen and pelvic area. She has a history of 7 blood transfusions. She states her last menstrual period was on 10/17, and she goes through about 20 pads during her monthly period. She states that she was supposed to get a hysterectomy last April, but did not have a ride to the appointment. When she arrived to the emergency room, she had an hemoglobin and hematocrit of 6.3 and 22.9. A negative stool for occult blood so she was admitted. We are transfusing 2 units of packed red blood cells. Discussed the importance of patient following up with her [employer] to schedule for her hysterectomy that is much needed due to the large uterine fibroid. Patient verbalized understanding. PAST MEDICAL HISTORY: Uterine fibroids, anemia secondary to uterine fibroid, GERD, hypertension, polymenorrhea, bipolar disorder, schizophrenia, polysubstance abuse and noncompliance with medications and follow-up. PAST SURGICAL HISTORY: x3, tubal ligation, and cholecystectomy. FAMILY HISTORY: Reviewed and noncontributory. SOCIAL HISTORY: She lives with family. Smokes a pack to a pack and a half cigarettes daily. Uses marijuana daily, and drinks alcohol daily. ALLERGIES: She has no known drug allergies. HOME MEDICATIONS: She does not take any medications on a routine basis. LABORATORY DATA: White blood cell count of 6.89, hemoglobin 6.3, hematocrit 22.9, and platelets 383. Sodium 134, potassium 3.9, chloride 99, CO2 22, BUN of 11, creatinine 0.7 and glucose 94. Stool for occult blood was negative. REVIEW OF SYSTEMS: She denied any fever, chills, blurred vision, or dizziness. She has had weakness and fatigue. No energy. Denied any chest pain, coughing, or shortness of breath. Denied any abdominal pain, constipation, diarrhea, burning or hurting with urination. PHYSICAL EXAMINATION: On arrival, she had a temperature of 98.8 degrees, pulse 90, respirations 16, blood pressure 138/84 and saturating 100% on room air. GENERAL: This is a 43-year-old female who is sitting up in the bed and answer questions appropriately. HEENT: Normocephalic, and atraumatic. Normal ENT inspection. Oropharynx and nares are clear. EYES: Pupils are equal, round, and reactive to light and accommodation. Extraocular movements are intact. NECK: Normal inspection. Normal range of motion. LUNGS: Clear to auscultation bilaterally with equal lung expansion and chest wall movement. HEART: Regular rate and rhythm. No murmurs, rubs, or gallops. ABDOMEN: Soft, nontender, and nondistended. Bowel sounds are present x4 quadrants. MUSCULOSKELETAL: She has 5/5 strength x4 extremities. NEUROLOGICAL: The cranial nerves 2-12 appear grossly intact. ASSESSMENT: 1. Symptomatic anemia secondary to blood loss. 2. History of uterine fibroids with poly menorrhea. 3. Hypertension. 4. Gastroesophageal reflux disease. 5. Schizophrenia. 6. Polysubstance abuse. 7. Tobacco abuse. 8. Noncompliance with medications and followup. PLAN: She has been admitted to the medical unit. We are transfusing 2 units of packed red blood cells. We will check a CBC upon completion of the 2nd unit. She is on normal saline at 100 mL an hour. Most likely if her hemoglobin and hematocrit is up after those 2 units, she can be safely discharged home this afternoon, but further orders will be done by the attending after seen. Dictated by IRENE Ambrosio for Cliff Antonio MD cc: IRENE Ambrosio MD
[2018-10-26 12:59] LABS: BASO# 0.02 X1000 (0.0-0.2); BASO% 0.4 % (0.0-0.8); EOS# 0.16 X1000 (0.0-0.7); EOS% 2.9 % (0.0-10.0); HEMATOCRIT 29.4 % (37.0-47.0); HEMOGLOBIN 8.6 g/dL (12.0-16.0); IMM GRAN# 0.01 X1000 (0.0-0.04); IMM GRAN% 0.2 % (0.0-0.5); LYMPH# 1.11 X1000 (1.2-3.4); MCH 20.1 PG (27-31); MCHC 29.3 g/dL (33-37); MCV 68.9 FL (81-99); MONO# 0.47 X1000 (0.11-0.59); MONO% 8.5 % (1.7-9.3); NEUT# 3.77 X1000 (1.4-6.5); PLT 334 X1000 (130-400); RBC 4.27 XMIL (4.2-5.4); WBC 5.54 X1000 (4.8-10.8)
[2018-10-26 13:55] LABS: ANISOCYTOSIS 2+; EOS 2 % (1-10); HYPOCHROM 2+; LYMPHS 17 % (21-51); MONO 2 % (1-9); POLYCHROM 2+; SEGS 79 % (42-75)
[2018-10-26 15:52] VITALS: BP 172/110
[2018-10-26] MEDS ORDERED: NORCO-5 PO ONE (16:31)
--- NOTE | 2018-10-28 03:50 | HISTORY AND PHYSICAL ---
ADDENDUM: I saw the patient [id number] and fully agree with the assessment and plan of nurse practitioner Eloina Lowe. This is a 43-year-old lady who has history of urine fibroids and has been having symptomatic anemia requiring multiple blood transfusions and hospital admissions in the recent past. She will be transfused 2 units of packed red blood cell and we are going to do a follow-up CBC to see if her hemoglobin and hematocrit improve. She can be discharged home by later this afternoon or evening time if she feels better and her hemoglobin and hematocrit are improved. cc: Cliff Antonio MD
== END 2018-10-26 18:30 | disposition home or self-care (01) | DRG 812 ==
LOC: P.ED 18:27 → P.MEDSURG 22:24
PROVIDERS: ATTEND Internal Medicine
CPT/HCPCS: 36430; 80053; 82270; 82550; 84484; 85025; 86850; 86900; 86901; 86920; 93005; 99285; A9270; J7030; P9016

== ENCOUNTER 2019-03-25 09:48 | Observation (INO) ==
[2019-03-25] MEDS ORDERED: NS 1,000 ML IV ONE (10:09)
[2019-03-25 11:34] LABS: URINE SOURCE CLEAN CATCH
[2019-03-25 11:39] LABS: INR 0.94; PROTIME 13.3 Seconds (11.0-16.0)
[2019-03-25 11:39] LABS: BILIRUBIN URINE NEGATIVE (NEGATIVE); BLOOD URINE NEGATIVE (NEGATIVE); COLOR YELLOW; GLUCOSE URINE NEGATIVE (NEGATIVE); KETONE URINE NEGATIVE (NEGATIVE); LEUKOCYTES URINE NEGATIVE (NEGATIVE); NITRITE URINE NEGATIVE (NEGATIVE); PROTEIN URINE TRACE mg/dL (NEGATIVE); SP GRAVITY URINE 1.021; TURBIDITY URINE CLEAR (CLEAR); UR EPITHELIAL CELLS <10 /HPF (<10); URINE BACTERIA 1+ /HPF; URINE RBC <10 /HPF (<10); URINE WBC <10 /HPF (<10); UROBILINOGEN URINE NORMAL (NORMAL)
[2019-03-25 11:41] LABS: BASO# 0.02 X1000 (0.0-0.2); BASO% 0.3 % (0.0-0.8); EOS# 0.16 X1000 (0.0-0.7); EOS% 2.2 % (0.0-10.0); HEMATOCRIT 24.1 % (37.0-47.0); LYMPH# 1.19 X1000 (1.2-3.4); LYMPH% 16.1 % (20.5-51.1); MCH 20.2 PG (27-31); MCV 69.7 FL (81-99); MONO# 0.38 X1000 (0.11-0.59); MONO% 5.1 % (1.7-9.3); NEUT# 5.66 X1000 (1.4-6.5); NEUT% 76.3 % (42.2-75.2); PLT 260 X1000 (130-400); RBC 3.46 XMIL (4.2-5.4); RDW 22.1 % (11.5-14.5); WBC 7.41 X1000 (4.8-10.8)
[2019-03-25 11:53] LABS: AGAP 12; ALB/GLOB RATIO 1.5; ALBUMIN 3.8 g/dL (3.5-5.0); ALKALINE PHOSPHATASE 90 U/L (32-104); BUN 11 mg/dL (8-22); CALCIUM 8.6 mg/dL (8.8-10.2); CHLORIDE 101 mmol/L (98-107); COSMO 270; CREATININE 0.7 mg/dL (0.5-0.9); ESTIMATED GFR > 60; GLUCOSE 101 mg/dL (70-104); GOT 26 U/L (10-30); GPT 15 U/L (10-36); POTASSIUM 4.2 mmol/L (3.5-5.1); SODIUM 135 mmol/L (136-145); TCO2 22 mmol/L (25-35); TOTAL BILIRUBIN 0.18 mg/dL (0.20-1.00); TOTAL PROTEIN 6.3 g/dL (6.3-8.3)
--- NOTE | 2019-03-25 11:56 | EKG Report ---
Test Performed on : 03/25/2019 11:19:46 AM Test Reason : cp Blood Pressure : / mmHG Vent. Rate : 069 BPM Atrial Rate : 069 BPM P-R Int : 174 ms QRS Dur : 070 ms QT Int : 404 ms P-R-T Axes : 054 049 053 degrees QTc Int : 432 ms Normal sinus rhythm. Normal ECG When compared with ECG of 27-JAN-2019 13:10, (Unconfirmed) No significant change was found Unconfirmed Result
[2019-03-25 12:17] LABS: UR AMPHETAMINES QUAL NONE DETECTED (NONE DETECT); UR BARBITUATES QUAL NONE DETECTED (NONE DETECT); UR BENZODIAZEPIN QUAL NONE DETECTED (NONE DETECT); UR CANNABINOIDS QUAL PRESUMPTIVE POSITIVE (NONE DETECT); UR COCAINE QUAL NONE DETECTED (NONE DETECT); UR METHADONE QUAL NONE DETECTED (NONE DETECT); UR OPIATES QUAL NONE DETECTED (NONE DETECT); UR OXYCODONE QUAL NONE DETECTED (NONE DETECT); UR PCP QUAL NONE DETECTED (NONE DETECT)
[2019-03-25] MEDS ORDERED: BENADRYL PO ONE (12:33)
[2019-03-25] MEDS ORDERED: TYLENOL PO ONE ×2 (12:33→16:25)
[2019-03-25] MEDS ORDERED: LASIX IV SCH ×2 (12:45→17:00)
--- NOTE | 2019-03-25 12:56 | PROVIDER DOCUMENTATION ---
This chart was entered by Deisy Zelaya Scribe, acting as scribe for Luís Ojeda MD. HPI-General Adult - General Chief Complaint: Dizziness Stated Complaint: DIZZY AFTER GIVING BLOOD Time Seen by Provider: 03/25/19 10:01 Source: patient Allergies/Adverse Reactions: Patient Allergies Allergy/AdvReac Type Severity Reaction Status Date / Time No Known Allergies Allergy Verified 10/18/17 10:39 Home Medications: Home Medication List Medication Instructions Recorded Confirmed Last Taken Type Omeprazole 40 mg PO DAILY 11/03/18 01/27/19 Unknown History Iron Carbonyl/Ascorbic Acid 1 ea PO DAILY #30 tab 01/28/19 Unknown Rx [Icar-C] Sulfamethoxazole/Trimethoprim 1 ea PO BID #6 tab 01/28/19 Unknown Rx [Bactrim Ds Tablet] Tramadol [Ultram] 50 mg PO Q6H PRN PRN #25 tab 01/28/19 Unknown Rx - History of Present Illness -Gen Adult Nature of Presenting Problems: 43 yobf presents to the ed with c/o dizziness, CP and, nausea and chills onset this morning. pt sts she is chronically anemic and sts she knows she is not supposed to donate plasma but 2 days prior tried to donate plasma and was unable to complete tx but this am woke with sx. pt sts she is not on her menstrual cycle at this time. pt on exam looks well and is nontoxic appearance Location of Pain/Injury: reports: chest Pain Radiation: reports: no radiation Quality of Pain: reports: none Severity: reports: mild Onset/Duration: reports: this morning Timing: reports: still present Context/Activities at Onset: reports: other (attempted to give plasma 2 days prior) Modifying Factors: improves with: nothing Associated Symptoms: reports: chest pain, dizziness, fever/chills (denies fever but has intermittent chills), nausea. denies: arm pain, back/neck pain, cough, headaches, shortness of breath, weakness, trouble walking Similar Symptoms Previously?: Yes (anemia) Recently seen or treated by another doctor?: No Review of Systems - Adult - REVIEW OF SYSTEMS - ADULT Constitutional: reports: see HPI, chills. denies: fever Eyes: reports: no symptoms reported Ears, Nose, Mouth & Throat: reports: no symptoms reported Cardiovascular: reports: see HPI, chest pain. denies: palpitations, PND Respiratory: denies: cough, shortness of breath, wheezing Gastrointestinal: reports: nausea. denies: abdominal pain, diarrhea, vomiting Genitourinary: reports: no symptoms reported Musculoskeletal: reports: no symptoms reported Integumentary: reports: no symptoms reported Neurological: reports: see HPI, dizziness/vertigo. denies: ataxia, headache/migraines, loss of balance, slurred speech, syncope, tremors Psychiatric: reports: no symptoms reported Endocrine: reports: no symptoms reported Hematologic/Lymphatic: reports: see HPI, low blood count, transfusions Allergic/Immunologic: reports: no symptoms reported All Other Systems: Reviewed and Negative Past History - Adult - PAST MEDICAL HISTORY-ADULT Review of Records: reports: Old Records Reviewed, Nursing Assessment Review, Medications Reviewed, Social history reviewed & non-contributory. Major Childhood Illnesses: reports: denies history Cardiovascular: reports: HTN, hyperlipidemia Respiratory: reports: COPD Gastrointestinal: reports: GERD Obstetrical/Gynecological: reports: fibroids, ovarian cysts Genitourinary: reports: denies history Musculoskeletal: reports: chronic pain, fibromyalgia Hand Dominance: Right Handed Neurological: reports: Seizures/Epilepsy Psychiatric: reports: bipolar, psychiatric problems, schizophrenia, other Endocrine/Immune: reports: anemia, Diabetes Other Conditions: reports: denies history - PRIOR SURGERIES/PROCEDURES Surgical/Procedure History: reports: cholecystectomy, BTL, - PRIOR HOSPITALIZATIONS Prior Hospitalizations: reports: for other non-related - IMMUNIZATION STATUS Childhood Immunizations: See Nurse Assessment Flu Vaccine: See Nurse Assessment - FAMILY HISTORY Family History: reviewed, not pertinent - SOCIAL HISTORY Smoking: cigarettes, less than 1 pack/day Substance Use: alcohol, marijuana Alcohol Use Frequency: twice a week Number of drinks per typical drinking period:: 3-4 drinks Living Situation: family Physical Exam-General - PHYSICAL EXAM-ADULT Initial Vital Signs Reviewed: Yes - CONSTITUTIONAL General Appearance: appears well, alert, no apparent distress - EYES Eyes: PERRL/EOMI, pink conjunctivae - HEAD, EARS, NOSE, MOUTH & THROAT HENMT: moist mucous membranes, normal ENT inspection - NECK Neck: non-tender, full range of motion, supple, normal inspection - CARDIOVASCULAR Cardiovascular: normal peripheral pulses, other (PMI with 1/6 mummer @ apex) - GASTROINTESTINAL (ABDOMEN) Abdominal Exam: normal bowel sounds, non tender, soft - LYMPHATIC Lymphatic: no adenopathy - MUSCULOSKELETAL Back Exam: normal inspection, no CVA tenderness, no vertebral tenderness Extremity: normal range of motion, non-tender, normal gait, normal inspection, no pedal edema, no calf tenderness, normal capillary refill, pelvis stable - SKIN Integumentary: normal color, normal turgor, warm/dry - NEUROLOGIC Neurologic: grossly normal, no motor/sensory deficits - PSYCHIATRIC Psych/Mental Status: normal mood/affect, normal thought content, normal thought process, oriented x 3 Progress - PLAN OF CARE/RESULTS Progress/Plan/Lab Results: Vital Signs - 8 hr 03/25/19 09:54 Temperature 98.9 F Pulse Rate 95 H Respiratory Rate 17 Blood Pressure 146/87 O2 Sat by Pulse Oximetry 95 Orders Category Date Time Status ED: Orthostatic Vital Signs (E as directed Care 03/25/19 10:08 Active ED: Urine Bedside ORDERED Care 03/25/19 10:09 Active Nursing- Obtain EKG once Care 03/25/19 10:08 Active CBC WITH ELECTRONIC DIFF [HEME] Stat Lab 03/25/19 10:08 Uncollected COMPREHENSIVE METABOLIC PANEL [CHEM] Stat Lab 03/25/19 10:08 Uncollected PROTIME WITH INR [COAG] Stat Lab 03/25/19 10:09 Uncollected TROPONIN T Stat Lab 03/25/19 10:09 Uncollected TYPE & SCREEN [BBK] Stat Lab 03/25/19 10:08 Uncollected URINALYSIS W/POSS RFLX CULT [URINALYSIS] Stat Lab 03/25/19 10:09 Uncollected URINE DRUG SCREEN Stat Lab 03/25/19 10:09 Uncollected 0.9% Sodium Chloride Inj [Ns] 1,000 ml Med 03/25/19 10:09 Active IV 999 mls/hr EKG [EKG] Stat Ther 03/25/19 10:08 Ordered Result Diagrams: 03/25/19 11:10 03/25/19 11:10 - REASSESSMENT Reassessment #1 Time Reassessed: 11:32 (pt is resting in bed on her cell phone in no distress) Status: unchanged - EKG 1 Time of EKG reading by physician:: 11:19 EKG Read and Signed by:: Luís Ojeda EKG Interpretation (*Must complete 3 of following elements*): Normal Rate: 69 Rhythm: NSR [place]: normal QRS: normal [place] Interval: normal ST Wave: normal - CONSULTS/PCP/HOSPITALIST Notification #1 *Consult/PCP/Hospitalist*: hospitalist dr ruffin Time Discussed: 12:54 Reason/Comments: anemia Consult Disposition: Admit (spoke with Eloina) Departure - Departure Date of Disposition Decision: 03/25/19 Time of Disposition Decision: 12:55 DIAGNOSIS: Chest pain at rest, Near syncope, Tobacco use disorder Anemia Qualifiers: Anemia type: unspecified type Qualified Code(s): D64.9 - Anemia, unspecified Disposition: ADMITTED INPATIENT 09 Certified Medical Emergency: Emergent Condition: Stable Referrals and Follow-Ups: Brian Munoz Jr, MD [Primary Care Provider] - - Critical Care Note This patient required my direct & personal management of CC.: No Attestation - Physician/ EVELYN Attestation Patient care was provided by Advanced Practice Provider:: No The physician spent face to face time with patient:: Yes Advanced Practice Provider documentation review:: Supervising physician onsite and consulted in the evaluation and care of this patient. The physician did have a face to face encounter with the patient. This chart was documented by the indicated scribe, (Deisy Zelaya Scribe) and accurately reflects the services I performed and decisions made by me, Luís Ojeda MD, as attested by the provider's signature.
[2019-03-25] MEDS ORDERED: TYLENOL PO PRN (14:56)
[2019-03-25] MEDS ORDERED: ZOFRAN IV PRN (14:56)
[2019-03-25] MEDS: NICODERM PATCH TD SCH (16:14)
[2019-03-25] MEDS: NS 1,000 ML IV SCH (16:14)
[2019-03-25] MEDS ORDERED: BENADRYL IV ONE (16:26)
[2019-03-25] MEDS ORDERED: LASIX IV ONE (16:27)
--- NOTE | 2019-03-25 17:21 | HISTORY AND PHYSICAL ---
PRIMARY CARE PHYSICIAN: Dr. Brian Munoz. IRISH MOSS OPERATOR: Dr. Zepeda. CHIEF COMPLAINT: Of dizziness and some chest discomfort after she tried to donate plasma at a local donation center approximately 2 days ago but was flagged red to not be able to donate anymore due to her history of anemia secondary to her uterine fibroids. HISTORY OF PRESENTING ILLNESS: This is a 43-year-old female who is well known to the hospitalist service presents to [facility] after she began having some dizziness, chest discomfort and chills after trying to donate plasma 2 days ago at a local donation place but states that her blood clotted off and her file was flagged red so that she would not be able to donate anymore due to her anemia secondary to her uterine fibroids. She states that she was supposed to have an appointment outpatient with Dr. Zepeda on March 24 to have further workup to have her hysterectomy but states that she needed money in order to buy beer and drugs and so she went to try to donate plasma in order to get money for those instead of going to her followup appointment. Today her hemoglobin and hematocrit is 7 and 24 which is certainly not as low as it has been in the past but still remains low. She is medically noncompliant with her medicines and followups but due to being symptomatic we will place her in the hospital, give her 2 units of blood and most likely be able to discharge her home tomorrow pending an improvement in her hemoglobin and hematocrit so she will be admitted for further evaluation and treatment. PAST MEDICAL HISTORY: 1. Of uterine fibroids, anemia secondary to the uterine fibroids. 2. GERD. 3. Hypertension. 4. Polymenorrhea. 5. Bipolar. 6. Schizophrenia. 7. Polysubstance abuse. 8. Noncompliance with medications and followup. PAST SURGICAL HISTORY: x3, bilateral tubal ligation and a cholecystectomy. FAMILY HISTORY: Reviewed and noncontributory. SOCIAL HISTORY: She currently lives with family. Smokes a pack and a half of cigarettes a day. Drinks 2 to 3 beers daily when she can afford it and uses marijuana daily. ALLERGIES: She has no known drug allergies. HOME MEDICATIONS: A current list of her home medications will need to be obtained, reviewed, reconciled and restarted as appropriate, will place an order for nursing to update and confirm home medications. LABORATORY DATA: Showed a white blood cell count of 7.41, hemoglobin 7, hematocrit 24.1, platelets 260,000. PT and INR 13.3 and 0.94, sodium 135, potassium 4.2, chloride 101, CO2 22, BUN of 11, creatinine 0.7, glucose 101. Troponin was negative at 0.010. Urinalysis was negative. Urine test was negative. Urine drug screen was presumptive positive for cannabinoids. EKG showed normal sinus rhythm at 69. REVIEW OF SYSTEMS: She denied any fever. She was positive for chills and dizziness and some chest discomfort. Denied any shortness of breath, cough, abdominal pain, constipation, diarrhea, nausea, vomiting, burning or hurting with urination. PHYSICAL EXAMINATION: On arrival she had a temperature of 98.9 degrees, pulse 95, respirations 17, blood pressure 146/87, saturating 95% on room air. GENERAL: This is a 43-year-old female who is lying in the bed and answers questions appropriately. HEENT: Normocephalic, atraumatic. Normal ENT inspection. Oropharynx and nares are clear. Pupils are equal, round, reactive to light, accommodation. Extraocular movements are intact. NECK: Normal inspection, normal range of motion. LUNGS: Clear to auscultation bilaterally with equal lung expansion and chest wall movement. HEART: With regular rate and rhythm. No murmurs, rubs, or gallops. ABDOMEN: Soft, nontender, nondistended. Bowel sounds are present x4 quadrants. MUSCULOSKELETAL: She has 5/5 strength x4 extremities. NEUROLOGICAL: Cranial nerves 2-12 appear grossly intact. ASSESSMENT: 1. Symptomatic anemia secondary to blood loss. 2. History of uterine fibroids with polymenorrhea. 3. Polysubstance abuse. 4. Tobacco abuse. 5. Schizophrenia. 6. Noncompliance with medications and followup. PLAN: She will be admitted to the medical unit. Will transfuse 2 units packed red blood cells, give her normal saline at 75 mL an hour, Zofran 4 mg IV q.4 p.r.n. for nausea, vomiting, update and confirm home medications. Recheck a CBC, BMP in the a.m. and will apply SCDs for DVT prophylaxis. Patient seen and examined by me face to face, all the laboratory, vitals signs and images were reviewed, patient presented to the emergency department complaining of , my physical exam showed , patient will be admitted to the medical floor with telemetry, we will monitor this patient closely, I agree with the ETHNIC STUDIES PROFESSOR's assessment ans plan, Richard Guy MD. Dictated by IRENE Ambrosio for Richard Mccarthy MD cc: IRENE Ambrosio MD [facility]
[2019-03-26] MEDS ORDERED: LASIX IV SCH (00:15)
[2019-03-26] MEDS: LASIX IV SCH ×2 (00:40→04:10)
[2019-03-26 07:33] LABS: BASO# 0.02 X1000 (0.0-0.2); BASO% 0.4 % (0.0-0.8); EOS# 0.22 X1000 (0.0-0.7); HEMATOCRIT 34.6 % (37.0-47.0); HEMOGLOBIN 10.7 g/dL (12.0-16.0); LYMPH% 23.7 % (20.5-51.1); MCH 22.4 PG (27-31); MCHC 30.9 g/dL (33-37); MCV 72.5 FL (81-99); MONO# 0.44 X1000 (0.11-0.59); MPV 9.8 FL (7.4-10.4); NEUT# 3.51 X1000 (1.4-6.5); NEUT% 63.9 % (42.2-75.2); PLT 230 X1000 (130-400); RBC 4.77 XMIL (4.2-5.4); RDW 23.5 % (11.5-14.5); WBC 5.49 X1000 (4.8-10.8)
[2019-03-26] MEDS: NICODERM PATCH TD SCH (08:29)
[2019-03-26] MEDS: NS 1,000 ML IV SCH (08:32)
[2019-03-26 13:25] VITALS: BP 123/96
--- NOTE | 2019-03-27 07:31 | DISCHARGE SUMMARY ---
ADMISSION DATE: 03/25/2019 DISCHARGE DATE: 03/26/2019 DISCHARGE DIAGNOSES: 1. Symptomatic anemia secondary to blood loss. 2. History of uterine fibroids with polymenorrhea. 3. Polysubstance abuse. Tobacco abuse. 4. Schizophrenia. 5. Noncompliance with medications and follow-up. HOSPITAL COURSE: A 43-year-old female, well-known to our service, presented to [facility] after she began having some dizziness and chest discomfort after trying to donate plasma 2 days ago at a local donation place. She states that she was supposed to have an appointment as an outpatient with Dr. Zepeda on 03/24 to have further workup and to have her hysterectomy, but states that she needed money in order to buy some alcohol and probably drugs, so she went to try to donate plasma in order to get the money. She presented to the emergency department with a hemoglobin of 7 and 24, but she was symptomatic even though she was having this kind of numbers before. She is not compliant with the medications and followups. Given her symptoms, we admitted the patient. We gave her 2 units of PRBC's. Today, she is feeling much better, complaining of some suprapubic discomfort probably because of the uterine fibroids. She will be discharged home and follow up with her DRAFTER SEISMOGRAPH doctor. This has been explained in detail to the patient. DISCHARGE MEDICATIONS: 1. Clonidine 0.1 mg p.o. at bedtime. 2. Meclizine 25 mg p.o. daily. 3. Omeprazole 40 mg p.o. daily. 4. Quetiapine 25 mg p.o. daily. 5. Tramadol 50 mg p.o. q.6 hours p.r.n. as needed for pain x12 pills. TIME SPENT: Time discharging this patient 35 minutes. cc: Richard Mccarthy MD
== END 2019-03-26 13:55 | disposition home or self-care (01) ==
LOC: ED 09:48 → INTOOBSV 14:19 → 3N 14:19
PROVIDERS: ATTEND Internal Medicine
CPT/HCPCS: 36430; 80053; 80101; 80301; 80307; 80324; 80345; 80346; 80353; 80358; 80361; 80365; 81001; 81025; 82948; 83992; 84484; 85025; 85610; 86850; 86870; 86900; 86901; 86920; 93005; A9270; G0431; G0434; G0479; G0480; J1200; J1940; J7030; P9016; XXXXX

== ENCOUNTER 2019-07-22 16:37 | Observation (INO) ==
--- NOTE | 2019-07-22 16:58 | PROVIDER DOCUMENTATION ---
HPI-General Adult - General Chief Complaint: Weakness Stated Complaint: POSS LOW BLOOD Time Seen by Provider: 07/22/19 16:49 Source: patient Allergies/Adverse Reactions: Patient Allergies Allergy/AdvReac Type Severity Reaction Status Date / Time No Known Allergies Allergy Verified 06/19/19 11:26 Home Medications: Home Medication List Medication Instructions Recorded Confirmed Last Taken Type Losartan Potassium 1 tab PO DAILY PRN 05/06/19 07/22/19 06/19/19 History Omeprazole 1 cap PO DAILY 05/06/19 07/22/19 07/22/19 07:00 History - History of Present Illness -Gen Adult Nature of Presenting Problems: 44 YOF PRESENTS WITH C/O GENERAL WEAKNESS, INCREASED SOB, DIZZINESS AND REPORTING SHE NEEDS A BLOOD TRANSFUSION. SHE HAS HAD BLOOD TRANSFUSIONS PRIOR AND WAS PLANNED FOR AN ENDOMETRIAL BIOPSY FOR HEAVY BLEEDING BUT HAS NOT FOLLOWED UP FOR THIS. SHE DENIES CP, N/V/D. Location of Pain/Injury: reports: none Pain Radiation: reports: no radiation Quality of Pain: reports: none Severity: reports: moderate Onset/Duration: reports: 1 week ago Timing: reports: still present Context/Activities at Onset: reports: other (MENSES) Modifying Factors: improves with: nothing Associated Symptoms: reports: dizziness, shortness of breath (WITH EXERTION), weakness Similar Symptoms Previously?: Yes Recently seen or treated by another doctor?: No Review of Systems - Adult - REVIEW OF SYSTEMS - ADULT Constitutional: reports: no symptoms reported. denies: see HPI, chills, fever, fatique, night sweats, weight gain, weight loss, other Eyes: reports: no symptoms reported. denies: see HPI, discharge, dry eyes, decreased vision, blurred vision, double vision, eye pain, redness, other Ears, Nose, Mouth & Throat: reports: no symptoms reported. denies: see HPI, ear discharge, ear pain, hearing loss, tinnitus, epistaxis, sinus problem, nose pain, loose teeth, mouth/dental pain, mouth swelling, hoarseness, throat pain, throat swelling, other Cardiovascular: reports: no symptoms reported. denies: see HPI, chest pain, edema, heart murmur, irregular heart rate, orthopnea, palpitations, poor circulation, PND, syncope, other Respiratory: reports: see HPI, shortness of breath (WITH EXERTION). denies: no symptoms reported, chronic cough, cough, dyspnea on exertion, excessive sputum production, hemoptysis, pleurisy, wheezing, other Gastrointestinal: reports: no symptoms reported. denies: see HPI, abdominal pain, hematemesis, constipation, diarrhea, difficulty swallowing, frequent heartburn, nausea, poor appetite, rectal bleeding, vomiting, other Genitourinary: reports: see HPI (HEAVY MESES). denies: no symptoms reported, dysuria, discharge, frequency, flank pain, frequent UTI's, hematuria, hesitency, incontinence, urinary retention, urgency, other Musculoskeletal: reports: muscle weakness (GENERALIZED). denies: no symptoms reported, see HPI, bone pain, back pain, frequent leg cramps, joint pain, joint swelling, muscle aches, neck pain, other Integumentary: reports: no symptoms reported. denies: see HPI, hives, hair loss, itching, mole changes, nail changes, rash, skin sores/ulcer, skin thickening, other Neurological: reports: dizziness/vertigo. denies: no symptoms reported, see HPI, ataxia, headache/migraines, loss of balance, numbness, paresthesia, seizure, slurred speech, syncope, tremors, other Psychiatric: reports: no symptoms reported. denies: see HPI, anxiety, anti- depressant use, alcohol/drug dependence, depression, emotional problems, in somnia, panic attacks, suicidal thoughts, other Endocrine: reports: no symptoms reported. denies: see HPI, change in skin pigment, excessive sweating, goiter, cold intolerance, heat intolerance, increased hunger, increased thirst, polyuria, other Hematologic/Lymphatic: reports: see HPI, transfusions. denies: no symptoms r eported, blood clots, easy bruising, low blood count, lymphedema, prolonged bleeding, swollen lymph nodes, other Allergic/Immunologic: reports: no symptoms reported. denies: see HPI, allergic reactions, allergic rhinitis, asthma, eczema, food allergy, frequent infections, hay fever, hives, positive PPD, urticaria, other Past History - Adult - PAST MEDICAL HISTORY-ADULT Review of Records: reports: Nursing Assessment Review, Social history reviewed & non-contributory. Major Childhood Illnesses: reports: denies history Cardiovascular: reports: HTN, hyperlipidemia Respiratory: reports: COPD Gastrointestinal: reports: GERD Obstetrical/Gynecological: reports: fibroids, ovarian cysts Genitourinary: reports: denies history Musculoskeletal: reports: chronic pain, fibromyalgia Neurological: reports: Seizures/Epilepsy Psychiatric: reports: bipolar, psychiatric problems, schizophrenia, other Endocrine/Immune: reports: anemia, Diabetes Other Conditions: reports: denies history - PRIOR SURGERIES/PROCEDURES Surgical/Procedure History: reports: cholecystectomy, BTL, - PRIOR HOSPITALIZATIONS Prior Hospitalizations: reports: for other non-related - IMMUNIZATION STATUS Childhood Immunizations: See Nurse Assessment Flu Vaccine: See Nurse Assessment - FAMILY HISTORY Family History: reviewed, not pertinent Physical Exam-General - PHYSICAL EXAM-ADULT Initial Vital Signs Reviewed: Yes - CONSTITUTIONAL General Appearance: appears well, alert, no apparent distress - EYES Eyes: PERRL/EOMI, pink conjunctivae - HEAD, EARS, NOSE, MOUTH & THROAT HENMT: normocephalic/atraumatic, moist mucous membranes, normal ENT inspection - NECK Neck: non-tender, full range of motion, supple - RESPIRATORY Respiratory: chest non-tender, lungs clear, normal breath sounds, no pleuratic c hest pain, no respiratory distress, no accessory muscle use - CARDIOVASCULAR Cardiovascular: normal peripheral pulses, regular rate, rhythm, no edema, no gallop, no JVD, no murmur - GASTROINTESTINAL (ABDOMEN) Abdominal Exam: normal bowel sounds, non tender, soft, no organomegaly, no pulsatile mass - LYMPHATIC Lymphatic: no adenopathy - MUSCULOSKELETAL Back Exam: normal inspection, no CVA tenderness, no vertebral tenderness Extremity: normal range of motion, non-tender, normal gait Peripheral Pulses: radial (R): 2+, radial (L): 2+ - SKIN Integumentary: normal color, normal turgor, warm/dry - NEUROLOGIC Neurologic: grossly normal - PSYCHIATRIC Psych/Mental Status: normal mood/affect, oriented x 3 Progress - PLAN OF CARE/RESULTS Progress/Plan/Lab Results: Vital Signs - 8 hr 07/22/19 16:43 Temperature 98.4 F Pulse Rate 100 H Respiratory Rate 18 Blood Pressure 157/95 O2 Sat by Pulse Oximetry 100 Orders Category Date Time Status CBC WITH ELECTRONIC DIFF [HEME] Stat Lab 07/22/19 16:50 Uncollected CMP [COMPREHENSIVE METABOLIC PANEL] [CHEM] Stat Lab 07/22/19 16:50 Uncollected TYPE & SCREEN [BBK] Stat Lab 07/22/19 16:50 Uncollected Result Diagrams: 07/23/19 07:06 11/12/19 17:03 - CONSULTS/PCP/HOSPITALIST Notification #1 *Consult/PCP/Hospitalist*: DR GARCIA Time Discussed: 18:00 Consult Disposition: Admit Departure - Departure Date of Disposition Decision: 07/22/19 Time of Disposition Decision: 18:00 DIAGNOSIS: Anemia Disposition: ADMITTED INPATIENT 09 Certified Medical Emergency: Emergent Condition: Stable - Critical Care Note This patient required my direct & personal management of CC.: No Attestation - Physician/ EVELYN Attestation Patient care was provided by Advanced Practice Provider:: Yes Advanced Practice Provider:: Hansa Escalera Advanced Practice Provider documentation review:: The Mid-level provider documentation, treatment plan and medical decision making was reviewed by the physician who agrees with all treatment and medical decision making by the MLP. The physician spent face to face time with patient:: No Advanced Practice Provider documentation review:: Supervising physician onsite and consulted in the evaluation and care of this patient. The physician did not have a face to face encounter with the patient.
[2019-07-22 17:37] LABS: BASO# 0.04 X1000 (0.0-0.2); BASO% 0.6 % (0.0-0.8); EOS# 0.16 X1000 (0.0-0.7); EOS% 2.5 % (0.0-10.0); HEMATOCRIT 26.4 % (37.0-47.0); HEMOGLOBIN 7.3 g/dL (12.0-16.0); IMM GRAN# 0.01 X1000 (0.0-0.04); IMM GRAN% 0.2 % (0.0-0.5); LYMPH# 1.63 X1000 (1.2-3.4); LYMPH% 25.6 % (20.5-51.1); MCH 17.7 PG (27-31); MCHC 27.7 g/dL (33-37); MCV 63.9 FL (81-99); MONO# 0.42 X1000 (0.11-0.59); MONO% 6.6 % (1.7-9.3); MPV 10.2 FL (7.4-10.4); NEUT# 4.11 X1000 (1.4-6.5); NEUT% 64.5 % (42.2-75.2); PLT 237 X1000 (130-400); RBC 4.13 XMIL (4.2-5.4); RDW 18.7 % (11.5-14.5); WBC 6.37 X1000 (4.8-10.8)
[2019-07-22 17:47] LABS: AGAP 13; ALBUMIN 4.5 g/dL (3.5-5.0); ALKALINE PHOSPHATASE 78 U/L (32-104); BUN 12 mg/dL (8-22); CALCIUM 9.3 mg/dL (8.8-10.2); CHLORIDE 105 mmol/L (98-107); COSMO 277; CREATININE 0.7 mg/dL (0.5-0.9); ESTIMATED GFR > 60; GLUCOSE 94 mg/dL (70-104); GOT 18 U/L (10-30); GPT 10 U/L (10-36); POTASSIUM 4.6 mmol/L (3.5-5.1); SODIUM 139 mmol/L (136-145); TCO2 21 mmol/L (25-35); TOTAL PROTEIN 7.8 g/dL (6.3-8.3)
[2019-07-22 18:05] LABS: INR 0.91; PROTIME 12.7 Seconds (11.0-16.0)
[2019-07-22 18:06] LABS: PTT 22.7 Seconds (22.3-41.8)
[2019-07-22] MEDS ORDERED: BENADRYL PO ONE (22:42)
[2019-07-22] MEDS ORDERED: TYLENOL PO ONE (22:43)
[2019-07-23] MEDS ORDERED: NS 500 ML ONE (00:32)
[2019-07-23] MEDS ORDERED: MYLICON PO ONE (01:01)
[2019-07-23] MEDS ORDERED: COZAAR PO PRN (07:00)
[2019-07-23 07:16] LABS: HEMATOCRIT 25.5 % (37.0-47.0); HEMOGLOBIN 7.3 g/dL (12.0-16.0); MCH 19.3 PG (27-31); MCHC 28.6 g/dL (33-37); MCV 67.5 FL (81-99); MPV 10.2 FL (7.4-10.4); RBC 3.78 XMIL (4.2-5.4); RDW 20.2 % (11.5-14.5); WBC 4.65 X1000 (4.8-10.8)
[2019-07-23] MEDS ORDERED: NS 500 ML IV ONE (07:59)
[2019-07-23 08:21] LABS: IRON SATURATION 22 %; TIBC 386 ug/dL; TOTAL IRON 84 ug/dL (49-151); UNBOUND IRON 302 ug/dL (112-346)
[2019-07-23] MEDS: PRILOSEC PO SCH (08:50)
[2019-07-23] MEDS: MYLICON PO PRN ×2 (08:50→21:09)
[2019-07-23] MEDS ORDERED: BENADRYL PO ONE (08:54)
[2019-07-23] MEDS ORDERED: TYLENOL PO ONE (08:54)
--- NOTE | 2019-07-23 12:51 | HISTORY AND PHYSICAL ---
CHIEF COMPLAINT: Generalized weakness, shortness of breath, and dizziness. HISTORY OF PRESENT ILLNESS: This is a 44-year-old female with a history of abnormal uterine bleeding, heavy menstrual bleeding, with known uterine fibroids. She presents to the emergency room complaining of generalized weakness, some shortness of breath with activity, and dizziness, and that she knows her blood counts are low. The patient states that these are her symptoms when she needs a blood transfusion. She was found to have a hemoglobin of 7.3, hematocrit of 26.4, for which she received a unit of packed cells and was admitted for further evaluation and treatment. PAST MEDICAL HISTORY: 1. Uterine fibroids. 2. Anemia secondary to heavy menses due to uterine fibroids. 3. Gastroesophageal reflux disease. 4. Hypertension. 5. Bipolar disorder. 6. Schizophrenia. 7. Polysubstance abuse. 8. Noncompliance with medications and followup. PAST SURGICAL HISTORY: section x3, bilateral tubal ligation, and cholecystectomy. FAMILY HISTORY: Positive for hypertension in both parents. ALLERGIES: No known drug allergies. HOME MEDICATIONS: At present, the patient states that she takes no home medications, although the patient has been prescribed losartan in the past. REVIEW OF SYSTEMS: Discussed with the patient, with pertinent positives stated in the HPI. She denied any syncope, any chest pain or palpitations, any productive cough, fevers or chills, any night sweats, recent weight loss or weight gain, any nausea, vomiting, diarrhea, constipation, black or bloody vomitus or stools, any hematuria, dysuria, frequency, urgency. PHYSICAL EXAMINATION: GENERAL: This is a 44-year-old female who is sitting up at the bedside in no distress. VITAL SIGNS: Blood pressure is 160/90, with a heart rate of 74, respirations are 18, temperature is 98.4 degrees oral, with room air saturations 100%. EYES: Pupils are equal, round, and react to light. EOMs are intact. Sclerae are anicteric. HENT: Head is normocephalic, atraumatic. Mucous membranes are moist. NECK: Supple with trachea midline. CARDIOVASCULAR: Regular rate and rhythm. S1 and S2 appreciated. No murmur. EXTREMITIES: She has no lower extremity edema. Calves are nontender bilaterally, with peripheral pulses palpable x4 extremities. PULMONARY: Breath sounds are clear with no increased work of breathing noted. Chest rises and falls symmetric with respiration. Chest wall is nontender to palpation. GASTROINTESTINAL: Abdomen is soft, nontender, nondistended, with bowel sounds in all 4 quadrants. NEUROLOGIC: She is alert and oriented x3. SKIN: Warm and dry. LABORATORY DATA: WBC is 6.3, with hemoglobin 7.3, hematocrit 26.4, platelets of 237,000. INR 0.91. Sodium 139, potassium 4.6, BUN 12, creatinine 0.7, with a glucose of 94. Iron is 84, TIBC 386, unsaturated iron binding 302. ASSESSMENT: 1. Symptomatic anemia secondary to blood loss. 2. History of uterine fibroids with polymenorrhea. 3. Polysubstance abuse. 4. Tobacco abuse. 5. Schizophrenia. 6. Noncompliance with medications and followup. PLAN: The patient has been admitted to the medical/surgical unit. She was given a unit of packed cells. Repeat hemoglobin and hematocrit are 7.3 and 25.5. Will give a second unit of packed cells, and repeat labs. Will continue her losartan 50 mg p.o. daily. Repeat a CBC and CMP this morning, and treat accordingly. Start losartan 50 mg p.o. daily. I did discuss with the patient, the importance of taking medications as prescribed as the patient stated she takes her losartan when she remembers it. Will recheck a CBC and CMP in the morning. For DVT prophylaxis, will use SCDs, and for GI prophylaxis, Prilosec. I did discuss with the patient once again, the importance of followup on discharge as this is the patient's sixth visit in 15 months for the same. Once again, I did discuss with the patient, the importance of followup for definitive diagnosis and treatment as this is her sixth visit in 18 months for the same. We also discussed the risks of multiple blood transfusions that are not limited to infections and development of blood antibodies, to which she voiced understanding, stating that once she receives blood, she feels better, so she does not follow up. Plan was discussed with Dr. García. Further treatments pending hospital course. Dictated by IRENE Choi for Jean Claude García MD cc: IRENE Choi MD
[2019-07-23] MEDS ORDERED: BENADRYL PO PRN (19:41)
[2019-07-23] MEDS ORDERED: TYLENOL PO PRN (19:41)
[2019-07-23] MEDS: NICODERM PATCH TD SCH (21:10)
--- NOTE | 2019-07-23 22:11 | HISTORY AND PHYSICAL ---
ADDENDUM Patient is a 44-year-old female who presented to the hospital with the same complaints that she unfortunately has had a multitude of times in the past. 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 Unfortunately, her H H again is low. We are going to admit her to the hospital, type, cross, transfuse and we will follow. Please see full note. cc: Jean Claude García MD
[2019-07-24 05:13] LABS: HEMATOCRIT 31.2 % (37.0-47.0); HEMOGLOBIN 8.8 g/dL (12.0-16.0); MCH 19.3 PG (27-31); MCHC 28.2 g/dL (33-37); MCV 68.6 FL (81-99); RBC 4.55 XMIL (4.2-5.4); RDW 20.3 % (11.5-14.5); WBC 6.01 X1000 (4.8-10.8)
[2019-07-24 05:22] LABS: AGAP 8; ALKALINE PHOSPHATASE 73 U/L (32-104); BUN 10 mg/dL (8-22); CALCIUM 9.3 mg/dL (8.8-10.2); CHLORIDE 103 mmol/L (98-107); COSMO 269; CREATININE 0.7 mg/dL (0.5-0.9); ESTIMATED GFR > 60; GLUCOSE 96 mg/dL (70-104); GOT 14 U/L (10-30); GPT 9 U/L (10-36); POTASSIUM 4.2 mmol/L (3.5-5.1); SODIUM 135 mmol/L (136-145); TCO2 24 mmol/L (25-35); TOTAL PROTEIN 6.8 g/dL (6.3-8.3)
[2019-07-24] MEDS: PRILOSEC PO SCH ×2 (05:53→06:28)
[2019-07-24] MEDS ORDERED: PRILOSEC PO SCH (07:00)
[2019-07-24 07:43] VITALS: BP 152/89
[2019-07-24] MEDS ORDERED: COZAAR PO SCH (09:00)
[2019-07-24] MEDS: NICODERM PATCH TD SCH (11:34)
--- NOTE | 2019-07-25 05:11 | DISCHARGE SUMMARY ---
ADMISSION DATE: 07/22/2019 DISCHARGE DATE: 07/24/2019 DIAGNOSES: 1. Symptomatic anemia secondary to blood loss, status post 2 units of packed cells transfused. 2. Uterine fibroids. 3. Gastroesophageal reflux disease. 4. Hypertension. 5. History of bipolar disorder. 6. Polysubstance abuse. 7. Tobacco abuse. 8. Noncompliance with medications and followup. HOSPITAL COURSE: Ms Eason presented to the emergency room complaining of generalized weakness, shortness of breath and dizziness. She felt that she needed a blood transfusion as this is how she has felt in the past when her hemoglobin and hematocrit were low. She was found to have a hemoglobin of 7.3, hematocrit of 26.4, for which she received 2 units of packed cells. Today, her hemoglobin and hematocrit are 8.8 and 31.2. She is no longer symptomatic. Her blood pressures are 150-170/80 and 90 range. We restarted her Cozaar as has been prescribed for her in the past and blood pressures are in the 140 to 150 over 70 to 80 range today. The patient did state that she takes Cozaar when she feels like it or remembers to take the pill, although she could not remember when she took it last. We did discuss the importance of her taking her medications as prescribed. Myself as well as Dr. García did discuss the importance of Ms Eason following up with EXTENSION SUPERVISOR for diagnosis and definitive treatment. This is the patient's I think 6th visit in approximately 18 months for the same receiving multiple blood transfusions. We did discuss the risk of continued blood transfusions including but not limited to infection as well as developing antibodies. She did voice understanding of this. She did state that she has had multiple follow- up appointments scheduled with Dr. Zepeda which she has scheduled and then canceled as well as a flight instructor in [place] that she has scheduled and canceled. She was strongly encouraged to make an appointment and follow through with evaluation and care. Today, she denies any vaginal bleeding. States that she does feel much better. DISCHARGE VITAL SIGNS: Blood pressure is 152/80 with a heart rate of 79, respirations are 18, temperature 98.4 degrees with room air saturations 100%. DISCHARGE PHYSICAL EXAMINATION: Cardiovascular: Regular rate and rhythm. S1 and S2 appreciated. Calves are nontender bilateral with peripheral pulses palpable x4 extremities. Pulmonary: Breath sounds are clear with no increased work of breathing noted. Chest rises and falls symmetrically with respiration. Gastrointestinal: Abdomen is soft, nontender, nondistended with bowel sounds in all 4 quadrants. Neurologic: She is alert and oriented x3. Skin: Warm and dry. DISCHARGE MEDICATIONS: 1. Omeprazole 40 mg p.o. daily. 2. Losartan 50 mg p.o. daily FOLLOWUP: 1. Dr. Zepeda or her flight instructor in [place], [place]. She needs to call to schedule an appointment to be seen. 2. Dr. Brian Munoz, her primary care physician. She needs to call to schedule an appointment to be seen in the next 1 to 2 weeks, sooner if needed. 3. She has been instructed to return to the emergency room or call to be seen sooner for any syncope, dizziness, chest pain, palpitations, shortness of breath, generalized weakness, any nausea, vomiting, diarrhea, constipation, black or bloody vomitus or stools, any increasing vaginal bleeding or for any questions or concerns that she may have. She is being discharged home in stable condition with family members. TIME SPENT: This is a greater than 30 minute discharge. Dictated by IRENE Choi for Jean Claude García MD cc: IRENE Choi MD [facility]
--- NOTE | 2019-07-25 16:36 | DISCHARGE SUMMARY ---
ADMISSION DATE: 07/22/2019 DISCHARGE DATE: 07/24/2019 SUMMARY: Patient was seen and examined. She is in no current respiratory distress. Notes that she is feeling better. She was admitted with symptomatic anemia. Unfortunately, she has been quite recalcitrant to follow up outpatient with LEAD PERFORMANCE SUPPORT ANALYST so that this can be alleviated. Patient even admits such. States that her family is upset with her because she has not followed up or done what she is supposed to. Regardless, she was admitted to the hospital and given two units of transfusion. Thankfully, on discharge, her hemoglobin and hematocrit is stable. She will be discharged home and again was strongly encouraged to follow up with LEAD PERFORMANCE SUPPORT ANALYST. cc: Jean Claude García MD
== END 2019-07-24 12:15 | disposition home or self-care (01) ==
LOC: P.ED 16:37 → INTOOBSV 19:46 → P.MEDSURG 19:46
PROVIDERS: ATTEND Family Medicine

== ENCOUNTER 2019-10-10 07:54 | Inpatient (IN) ==
[2019-10-10] MEDS ORDERED: TORADOL IV ONE (08:14)
[2019-10-10] MEDS ORDERED: DECADRON IV ONE (08:14)
[2019-10-10] MEDS ORDERED: ZOFRAN IV ONE (08:14)
[2019-10-10] MEDS ORDERED: NS 1,000 ML IV ONE ×3 (08:14→10:47)
[2019-10-10] MEDS ORDERED: TUSSIONEX LIQUID PO ONE (08:14)
--- NOTE | 2019-10-10 08:18 | EKG Report ---
Test Performed on : 10/10/2019 07:59:01 AM Test Reason : CP Blood Pressure : / mmHG Vent. Rate : 102 BPM Atrial Rate : 102 BPM P-R Int : 162 ms QRS Dur : 070 ms QT Int : 354 ms P-R-T Axes : 073 046 059 degrees QTc Int : 461 ms Sinus tachycardia. Otherwise normal ECG When compared with ECG of 15-SEP-2019 11:30, (Unconfirmed) No significant change was found Unconfirmed Result
[2019-10-10 08:35] LABS: URINE SOURCE CLEAN CATCH
[2019-10-10 08:38] LABS: BILIRUBIN URINE NEGATIVE (NEGATIVE); BLOOD URINE NEGATIVE (NEGATIVE); COLOR YELLOW; GLUCOSE URINE NEGATIVE (NEGATIVE); KETONE URINE NEGATIVE (NEGATIVE); LEUKOCYTES URINE TRACE (NEGATIVE); NITRITE URINE NEGATIVE (NEGATIVE); PH URINE 7.5; PROTEIN URINE 30 mg/dL (NEGATIVE); SP GRAVITY URINE 1.016; TURBIDITY URINE CLEAR (CLEAR); UROBILINOGEN URINE NORMAL (NORMAL)
[2019-10-10 08:40] LABS: UR EPITHELIAL CELLS <10 /HPF (<10); URINE BACTERIA 1+ /HPF; URINE RBC <10 /HPF (<10); URINE WBC <10 /HPF (<10)
[2019-10-10 08:42] LABS: BASO# 0.03 X1000 (0.0-0.2); BASO% 0.4 % (0.0-0.8); EOS# 0.08 X1000 (0.0-0.7); HEMATOCRIT 25.3 % (37.0-47.0); HEMOGLOBIN 6.9 g/dL (12.0-16.0); IMM GRAN# 0.01 X1000 (0.0-0.04); IMM GRAN% 0.1 % (0.0-0.5); LYMPH# 1.27 X1000 (1.2-3.4); MCH 17.8 PG (27-31); MCHC 27.3 g/dL (33-37); MCV 65.4 FL (81-99); MONO# 0.38 X1000 (0.11-0.59); MONO% 4.8 % (1.7-9.3); MPV 10.5 FL (7.4-10.4); NEUT# 6.17 X1000 (1.4-6.5); NEUT% 77.7 % (42.2-75.2); PLT 391 X1000 (130-400); RBC 3.87 XMIL (4.2-5.4); WBC 7.94 X1000 (4.8-10.8)
[2019-10-10] MEDS ORDERED: PHENERGAN IM ONE (08:49)
[2019-10-10 08:51] LABS: INR 0.95; PROTIME 13.1 Seconds (11.0-16.0)
[2019-10-10 08:52] LABS: PTT 27.9 Seconds (22.3-41.8)
--- NOTE | 2019-10-10 08:54 | Diag Imaging Result Doc PS360 ---
EXAM: CHEST-1 VIEW - 10/10/2019 HISTORY: COUGH TECHNIQUE: Portable chest one view COMPARISON: 09/15/2019 FINDINGS: Heart size is normal. There is stable right infrahilar granuloma from old granulomatous disease. The lungs otherwise appear clear. There is no pleural effusion or pneumothorax identified. IMPRESSION: No evidence of acute disease. Electronically signed by Johnson Fuchs 10/10/2019 8:51 AM
[2019-10-10 08:58] LABS: INFLUENZA A NEGATIVE (NEGATIVE); INFLUENZA B NEGATIVE (NEGATIVE)
[2019-10-10 08:59] LABS: AGAP 17; ALBUMIN 4.3 g/dL (3.5-5.0); ALKALINE PHOSPHATASE 83 U/L (32-104); BUN 10 mg/dL (8-22); CALCIUM 9.3 mg/dL (8.8-10.2); CHLORIDE 102 mmol/L (98-107); CK PROFILE 88 U/L (24-173); COSMO 279; CREATININE 0.6 mg/dL (0.5-0.9); ESTIMATED GFR > 60; GLUCOSE 112 mg/dL (70-104); GOT 19 U/L (10-30); GPT 11 U/L (10-36); POTASSIUM 4.4 mmol/L (3.5-5.1); SODIUM 140 mmol/L (136-145); TCO2 21 mmol/L (25-35); TOTAL PROTEIN 7.5 g/dL (6.3-8.3)
[2019-10-10] MEDS ORDERED: LASIX IV ONE (10:52)
[2019-10-10] MEDS ORDERED: TYLENOL PO ONE (10:52)
[2019-10-10] MEDS ORDERED: PROTONIX 80 MG in NS 80 ML IV ONE (10:52)
[2019-10-10] MEDS ORDERED: NS 500 ML IV ONE (10:52)
[2019-10-10] MEDS ORDERED: BENADRYL IV ONE ×2 (10:52→20:30)
[2019-10-10 11:00] LABS: OCCULT BLOOD 1 NEGATIVE (NEGATIVE)
[2019-10-10] MEDS ORDERED: PROTONIX ONE (11:02)
--- NOTE | 2019-10-10 12:05 | Diag Imaging Result Doc PS360 ---
EXAM: CT ABD/PELVIS W/IV CONT ONLY - 10/10/2019 HISTORY: vomiting with abd pain and anemia TECHNIQUE: CT abdomen/pelvis with intravenous contrast COMPARISON: 05/06/2019 FINDINGS: The visualized lung bases are clear. There are no substantial abnormalities of the liver, spleen, adrenal glands, or pancreas identified. The gallbladder surgically absent. The bilateral kidneys enhance homogeneously. There is no hydronephrosis. There are no substantially enlarged lymph nodes identified. There is no evidence of bowel obstruction. The appendix is somewhat difficult to distinguish from unopacified bowel. There is no obvious appendiceal inflammation. There is no substantial bowel wall thickening identified. There is no free air, substantial free fluid, or abscess identified. The uterus is enlarged similar to the prior exam, suggestive of fibroid uterus. There is more intermediate density material in the uterus compared the prior exam which may relate to fibroid necrosis. There is a 2.5 cm left ovarian cyst. IMPRESSION: Apparent fibroid uterus. Increased intermediate density material in uterus compared to prior which which may relate to fibroid necrosis. No bowel obstruction. No obvious appendicitis. No abscess. No free air. This exam was performed using automated exposure control, adjustment of mA or kV according to patient size, and/or use of iterative reconstruction technique. Electronically signed by Johnson Fuchs 10/10/2019 12:03 PM
--- NOTE | 2019-10-10 12:15 | PROVIDER DOCUMENTATION ---
This chart was entered by Candice Vega Scribe, acting as scribe for Luís Ojeda MD. HPI-Chest Pain - General Chief Complaint: Chest Pain Stated Complaint: CHEST PAIN Time Seen by Provider: 10/10/19 08:06 Source: patient Allergies/Adverse Reactions: Patient Allergies Allergy/AdvReac Type Severity Reaction Status Date / Time No Known Allergies Allergy Verified 09/15/19 10:27 Home Medications: Home Medication List Medication Instructions Recorded Confirmed Last Taken Type Omeprazole 1 cap PO DAILY 05/06/19 10/10/19 07/22/19 07:00 History - History of Present Illness-CP Nature of Presenting Problem: Patient is a 44 year old female who presents with chest pain. States chest pain radiates to epigastric. Reports nausea and vomiting. States symptoms started this morning. Report body aches and cough that started yesterday. Location: reports: central Chest Pain Radiation: reports: epigastric Quality of Pain: reports: aching Severity in ED: mild Onset/Duration: this morning Timing: still present Context/Activities at Onset: reports: light activity Associated Symptoms: reports: nausea, vomiting Similar Symptoms Previously?: No Recently Seen Here or By Another Healthcare Provider: No Review of Systems - Adult - REVIEW OF SYSTEMS - ADULT Constitutional: reports: no symptoms reported Eyes: reports: no symptoms reported Ears, Nose, Mouth & Throat: reports: no symptoms reported Cardiovascular: reports: see HPI, chest pain. denies: irregular heart rate, palpitations Respiratory: reports: see HPI, cough. denies: shortness of breath, wheezing Gastrointestinal: reports: see HPI, abdominal pain (epigastric), nausea, vomiting Genitourinary: reports: no symptoms reported Musculoskeletal: reports: see HPI, muscle aches (generalized). denies: back pain, neck pain Integumentary: reports: no symptoms reported Neurological: reports: no symptoms reported Psychiatric: reports: no symptoms reported Endocrine: reports: no symptoms reported Hematologic/Lymphatic: reports: no symptoms reported Allergic/Immunologic: reports: no symptoms reported All Other Systems: Reviewed and Negative Past History - Adult - PAST MEDICAL HISTORY-ADULT Review of Records: reports: Old Records Reviewed, Nursing Assessment Review, Medications Reviewed, Social history reviewed & non-contributory. Major Childhood Illnesses: reports: denies history Cardiovascular: reports: HTN, hyperlipidemia Respiratory: reports: COPD Gastrointestinal: reports: GERD Obstetrical/Gynecological: reports: fibroids, ovarian cysts Genitourinary: reports: denies history Musculoskeletal: reports: chronic pain, fibromyalgia Neurological: reports: Seizures/Epilepsy Psychiatric: reports: bipolar, psychiatric problems, schizophrenia, other Endocrine/Immune: reports: anemia Other Conditions: reports: denies history - PRIOR SURGERIES/PROCEDURES Surgical/Procedure History: reports: cholecystectomy, BTL, - PRIOR HOSPITALIZATIONS Prior Hospitalizations: reports: for other non-related - IMMUNIZATION STATUS Childhood Immunizations: See Nurse Assessment Flu Vaccine: See Nurse Assessment - FAMILY HISTORY Family History: reviewed, not pertinent - SOCIAL HISTORY Smoking: cigarettes, less than 1 pack/day Provider spent 3-5 mins advising pt. on dangers of tobacco.: Discussed manners to quit use, and f/u contacts for add'l counseling. Substance Use: alcohol Alcohol Use Frequency: occasionally Physical Exam-General - PHYSICAL EXAM-ADULT Initial Vital Signs Reviewed: Yes - CONSTITUTIONAL General Appearance: alert, no apparent distress. negative: slow to respond - HEAD, EARS, NOSE, MOUTH & THROAT HENMT: normocephalic/atraumatic, moist mucous membranes. negative: angioedema - RESPIRATORY Respiratory: chest non-tender, rhonchi (scattered). negative: respiratory distress - CARDIOVASCULAR Cardiovascular: tachycardia. negative: systolic murmur, extra beats - GASTROINTESTINAL (ABDOMEN) Abdominal Exam: normal bowel sounds, soft, tenderness (epigastric). negative: distended - MUSCULOSKELETAL Extremity: non-tender, normal inspection. negative: pedal edema - SKIN Integumentary: normal color, normal turgor, warm/dry. negative: diaphoresis, pallor - NEUROLOGIC Neurologic: grossly normal. negative: aphasia, facial droop - PSYCHIATRIC Psych/Mental Status: normal mood/affect, normal thought content, normal thought process, oriented x 3. negative: tearful Progress - PLAN OF CARE/RESULTS Progress/Plan/Lab Results: Vital Signs - 8 hr 10/10/19 07:57 10/10/19 09:28 10/10/19 10:15 Temperature 98.5 F 98.2 F Pulse Rate 102 H 98 H 91 H Respiratory Rate 21 16 14 Blood Pressure 168/114 157/94 142/88 O2 Sat by Pulse Oximetry 98 100 100 10/10/19 11:45 Temperature Pulse Rate 84 Respiratory Rate 17 Blood Pressure 153/88 O2 Sat by Pulse Oximetry 97 Laboratory Results - last 24 hr 10/10/19 10/10/19 10/10/19 08:20 08:20 08:20 WBC 7.94 RBC 3.87 L Hgb 6.9 L Hct 25.3 L MCV 65.4 L MCH 17.8 L MCHC 27.3 L RDW Std Deviation 20.0 H Plt Count 391 MPV 10.5 H Immature Gran % (Auto) 0.1 Neut % (Auto) 77.7 H Lymph % (Auto) 16.0 L [place] % (Auto) 4.8 Eos % (Auto) 1.0 Baso % (Auto) 0.4 Immature Gran # (Auto) 0.01 Neut # (Auto) 6.17 Lymph # (Auto) 1.27 [place] # (Auto) 0.38 Eos # (Auto) 0.08 Baso # (Auto) 0.03 PT 13.1 INR 0.95 PTT (Actin FS) 27.9 Sodium 140 Potassium 4.4 Chloride 102 Carbon Dioxide 21 L Anion Gap 17 BUN 10 Creatinine 0.6 Estimated GFR/1.73 m2 > 60 BUN/Creatinine Ratio 17 Glucose 112 H Calculated Osmolality 279 Calcium 9.3 Total Bilirubin 0.20 AST 19 ALT 11 Alkaline Phosphatase 83 Creatine Kinase 88 Troponin T High Sens Azv-[id number]-Btkwfqcwnkc Pept Total Protein 7.5 Albumin 4.3 Globulin 3.0 Albumin/Globulin Ratio 1.0 Lipase Plasma Lactate Urine Source Urine Color Urine Turbidity Urine pH Ur Specific [place] Urine Protein Ur Glucose (Stick) Ur Ketones (Stick) Urine Blood Urine Nitrite Urine Bilirubin Urobilinogen Dipstick Urine Leukocytes Urine WBC (Auto) Urine RBC (Auto) U Epithel Cells (Auto) Urine Bacteria (Auto) Stool Occult Blood Influenza A (Rapid) Influenza B (Rapid) Blood Type Crossmatch 10/10/19 10/10/19 10/10/19 08:20 08:20 08:20 WBC RBC Hgb Hct MCV MCH MCHC RDW Std Deviation Plt Count MPV Immature Gran % (Auto) Neut % (Auto) Lymph % (Auto) [place] % (Auto) Eos % (Auto) Baso % (Auto) Immature Gran # (Auto) Neut # (Auto) Lymph # (Auto) [place] # (Auto) Eos # (Auto) Baso # (Auto) PT INR PTT (Actin FS) Sodium Potassium Chloride Carbon Dioxide Anion Gap BUN Creatinine Estimated GFR/1.73 m2 BUN/Creatinine Ratio Glucose Calculated Osmolality Calcium Total Bilirubin AST ALT Alkaline Phosphatase Creatine Kinase Troponin T High Sens < 6 Dok-Y-Cldnyzdceyn Pept Total Protein Albumin Globulin Albumin/Globulin Ratio Lipase Plasma Lactate 3.0 H Urine Source CLEAN CATCH Urine Color YELLOW Urine Turbidity CLEAR Urine pH 7.5 Ur Specific [place] 1.016 Urine Protein 30 A Ur Glucose (Stick) NEGATIVE Ur Ketones (Stick) NEGATIVE Urine Blood NEGATIVE Urine Nitrite NEGATIVE Urine Bilirubin NEGATIVE Urobilinogen Dipstick NORMAL Urine Leukocytes TRACE A Urine WBC (Auto) <10 Urine RBC (Auto) <10 U Epithel Cells (Auto) <10 Urine Bacteria (Auto) 1+ Stool Occult Blood Influenza A (Rapid) Influenza B (Rapid) Blood Type Crossmatch 10/10/19 10/10/19 10/10/19 08:20 08:20 08:20 WBC RBC Hgb Hct MCV MCH MCHC RDW Std Deviation Plt Count MPV Immature Gran % (Auto) Neut % (Auto) Lymph % (Auto) [place] % (Auto) Eos % (Auto) Baso % (Auto) Immature Gran # (Auto) Neut # (Auto) Lymph # (Auto) [place] # (Auto) Eos # (Auto) Baso # (Auto) PT INR PTT (Actin FS) Sodium Potassium Chloride Carbon Dioxide Anion Gap BUN Creatinine Estimated GFR/1.73 m2 BUN/Creatinine Ratio Glucose Calculated Osmolality Calcium Total Bilirubin AST ALT Alkaline Phosphatase Creatine Kinase Troponin T High Sens Igv-Z-Xtpbnalgzik Pept 133 Total Protein Albumin Globulin Albumin/Globulin Ratio Lipase 15 Plasma Lactate Urine Source Urine Color Urine Turbidity Urine pH Ur Specific [place] Urine Protein Ur Glucose (Stick) Ur Ketones (Stick) Urine Blood Urine Nitrite Urine Bilirubin Urobilinogen Dipstick Urine Leukocytes Urine WBC (Auto) Urine RBC (Auto) U Epithel Cells (Auto) Urine Bacteria (Auto) Stool Occult Blood Influenza A (Rapid) NEGATIVE Influenza B (Rapid) NEGATIVE Blood Type Crossmatch 10/10/19 10/10/19 10/10/19 10:55 11:07 11:07 WBC RBC Hgb Hct MCV MCH MCHC RDW Std Deviation Plt Count MPV Immature Gran % (Auto) Neut % (Auto) Lymph % (Auto) [place] % (Auto) Eos % (Auto) Baso % (Auto) Immature Gran # (Auto) Neut # (Auto) Lymph # (Auto) [place] # (Auto) Eos # (Auto) Baso # (Auto) PT INR PTT (Actin FS) Sodium Potassium Chloride Carbon Dioxide Anion Gap BUN Creatinine Estimated GFR/1.73 m2 BUN/Creatinine Ratio Glucose Calculated Osmolality Calcium Total Bilirubin AST ALT Alkaline Phosphatase Creatine Kinase Troponin T High Sens Yvf-T-Soivywfslnn Pept Total Protein Albumin Globulin Albumin/Globulin Ratio Lipase Plasma Lactate 2.0 Urine Source Urine Color Urine Turbidity Urine pH Ur Specific [place] Urine Protein Ur Glucose (Stick) Ur Ketones (Stick) Urine Blood Urine Nitrite Urine Bilirubin Urobilinogen Dipstick Urine Leukocytes Urine WBC (Auto) Urine RBC (Auto) U Epithel Cells (Auto) Urine Bacteria (Auto) Stool Occult Blood NEGATIVE Influenza A (Rapid) Influenza B (Rapid) Blood Type O POSITIVE Crossmatch See Detail Orders Category Date Time Status Cardiac Monitoring DIRECTED Care 10/10/19 08:03 Active Consent for Test/Procedure DIRECTED Care 10/10/19 10:53 Active IV Insertion ORDERED Care 10/10/19 08:03 Completed Notify MD if DIRECTED Care 10/10/19 10:53 Active Notify MD of + Sepsis Screen NOW Care 10/10/19 08:03 Active Transfuse .Give-Transfuse Care 10/10/19 10:53 Active CHEST-1 VIEW [RAD] Stat Exams 10/10/19 08:[address] ABD/PELVIS W/IV CONT ONLY [CT] Stat Exams 10/10/19 10:46 Completed BLOOD CULTURE [BLDCUL] Stat Lab 10/10/19 08:10 Ordered CBC WITH DIFF [HEME] Stat Lab 10/10/19 08:20 Completed CK PROFILE [SP CHEM] Stat Lab 10/10/19 08:20 Completed COMPREHENSIVE METABOLIC PANEL [CHEM] Stat Lab 10/10/19 08:[address] Stat Lab 10/10/19 08:20 Completed LACTATE, PLASMA [CHEM] Lab 10/10/19 11:07 Completed LACTATE, PLASMA [CHEM] Lab 10/10/19 14:15 Uncollected LACTATE, PLASMA [CHEM] Q3H Lab 10/10/19 08:20 Completed LIPASE [CHEM] Stat Lab 10/10/19 08:20 Completed LRPC (RED CELLS) [BBK] Stat Lab 10/10/19 11:07 Results OCCULT BLOOD SCREEN STOOL PL Stat Lab 10/10/19 10:55 Completed PRO B-NATRIURETIC PEPTIDE Stat Lab 10/10/19 08:20 Completed PROTIME WITH INR [COAG] Stat Lab 10/10/19 08:20 Completed PTT [COAG] Stat Lab 10/10/19 08:20 Completed TROPONIN T HIGH SENSITIVITY Stat Lab 10/10/19 08:20 Completed TYPE & SCREEN [BBK] Stat Lab 10/10/19 11:07 Results URINALYSIS W/POSS RFLX CULT [URINALYSIS] Stat Lab 10/10/19 08:20 Completed URINE CULTURE [RM] Routine Lab 10/10/19 09:07 Ordered 0.9% Sodium Chloride Inj [Ns] 1,000 ml Med 10/10/19 08:14 Discontinued IV 999 mls/hr 0.9% Sodium Chloride Inj [Ns] 1,000 ml Med 10/10/19 10:47 Discontinued IV 999 mls/hr 0.9% Sodium Chloride Inj [Ns] 1,000 ml Med 10/10/19 10:47 Discontinued IV 999 mls/hr 0.9% Sodium Chloride Inj [Ns] 500 ml Med 10/10/19 10:52 Active IV 30 mls/hr Acetaminophen [Tylenol] Med 10/10/19 10:52 Discontinued 650 mg PO PREMED ONE Dexamethasone [Decadron] Med 10/10/19 08:14 Discontinued 10 mg IV NOW ONE Diphenhydramine [Benadryl] Med 10/10/19 10:52 Discontinued 25 mg IV PREMED ONE Furosemide [Lasix] Med 10/10/19 10:52 Discontinued 20 mg IV NOW ONE Hydrocodone/Chlorphen Polis [Tussionex Liquid] Med 10/10/19 08:14 Discontinued 5 ml PO NOW ONE Ketorolac [Toradol] Med 10/10/19 08:14 Discontinued 30 mg IV NOW ONE Ondansetron [Zofran] Med 10/10/19 08:14 Discontinued 8 mg IV NOW ONE Pantoprazole [Protonix] Med 10/10/19 11:02 Discontinued 40 mg .ROUTE .STK-MED ONE Pantoprazole [Protonix] 80 mg Med 10/10/19 10:52 Discontinued 0.9% Sodium Chloride Inj [Ns] 80 ml IV NOW Promethazine [Phenergan] Med 10/10/19 08:49 Discontinued 25 mg IM NOW ONE Oxygen Device Stat Oth 10/10/19 08:03 Active EKG [EKG] Stat Ther 10/10/19 08:04 Draft Result Diagrams: 10/10/19 08:20 10/10/19 08:20 - REASSESSMENT Reassessment #1 Time Reassessed: 12:13 Status: improving (States feels better. Transfusion ordered) - EKG 1 Time of EKG reading by physician:: 08:00 EKG Read and Signed by:: Luís Ojeda EKG Interpretation (*Must complete 3 of following elements*): Abnormal Rate: 102 Rhythm: sinus tachy [place]: normal [place] Interval: normal Comments: no STEMI - XRAY 1 XRAY Study: Chest Impression: See EMR Report ( EXAM: CHEST-1 VIEW - 10/10/2019 HISTORY: COUGH TECHNIQUE: Portable chest one view COMPARISON: 09/15/2019 FINDINGS: Heart size is normal. There is stable right infrahilar granuloma from old granulomatous disease. The lungs otherwise appear clear. There is no pleural effusion or pneumothorax identified. IMPRESSION: No evidence of acute disease. Electronically signed by Johnson Fuchs 10/10/2019 8:51 AM 10/10/19 0851 Interpreting Physician: Johnson Fuchs MD Dictated Date/Time: 10/10/19 0850 cc: Luís Ojeda MD; Brian Munoz Jr, MD) - CONSULTS/PCP/HOSPITALIST Notification #1 *Consult/PCP/Hospitalist*: Dr. García Time Discussed: 12:04 Reason/Comments: Dr. Ojeda consulted with Dr. García about patient Consult Disposition: Will see in ED, Admit Departure - Departure Date of Disposition Decision: 10/10/19 Time of Disposition Decision: 12:04 DIAGNOSIS: Tobacco use disorder, Flu-like symptoms, UTI (urinary tract infection), uncomplicated, Malignant hypertension, Severe anemia Fibroid uterus Qualifiers: Uterine leiomyoma location: intramural, submucous, and subserous Qualified Code (s): D25.1 - Intramural leiomyoma of uterus; D25.0 - Submucous leiomyoma of uterus; D25.2 - Subserosal leiomyoma of uterus Sepsis without acute organ dysfunction Qualifiers: Sepsis type: sepsis due to unspecified organism Qualified Code(s): A41.9 - Sepsis, unspecified organism Disposition: ADMITTED INPATIENT 09 Certified Medical Emergency: Emergent Condition: Fair Referrals and Follow-Ups: Brian Munoz Jr, MD [Primary Care Provider] - - Critical Care Note This patient required my direct & personal management of CC.: Yes Total Time (mins): 40 Critical Care Statement: This patient required my direct personal management to treat or rule out processes, the absence of which, could potentiallly result in sudden, clinically significant life or limb threatening deterioration. Attestation - Physician/ EVELYN Attestation Patient care was provided by Advanced Practice Provider:: No The physician spent face to face time with patient:: Yes Advanced Practice Provider documentation review:: Supervising physician onsite and consulted in the evaluation and care of this patient. The physician did have a face to face encounter with the patient. This chart was documented by the indicated scribe, (Candice Vega Scribe) and accurately reflects the services I performed and decisions made by me, Luís Ojeda MD, as attested by the provider's signature.
[2019-10-10] MEDS ORDERED: TYLENOL ONE (13:43)
[2019-10-10] MEDS ORDERED: BENADRYL ONE (13:43)
[2019-10-10] MEDS ORDERED: ZOFRAN IV PRN (14:50)
[2019-10-10] MEDS ORDERED: TYLENOL PO PRN (14:50)
[2019-10-10] MEDS ORDERED: SODIUM CHLORIDE 0.9% INJ ONE (15:09)
[2019-10-10] MEDS ORDERED: PHENERGAN IV ONE (15:09)
--- NOTE | 2019-10-10 15:25 | HISTORY AND PHYSICAL ---
PRIMARY CARE PHYSICIAN: Dr. Munoz. CHIEF COMPLAINT: Chest pain radiates to the epigastric area, nausea, vomiting, body aches and a cough that began yesterday. HISTORY OF PRESENTING ILLNESS: This is a 44-year-old female well known to the hospitalist service presents with complaints of some chest pain that radiated to the epigastric area with nausea, vomiting that began this morning, also had some body aches and a cough. Had workup showed a hemoglobin of 6.9, hematocrit 25.3. Stool for occult blood was negative. Influenza A and B were negative. We did a CT of the abdomen and pelvis that showed an apparent fibroid uterus, increased intermediate density material in uterus compared to prior which may relate to fibroid necrosis so she will be admitted for further evaluation and treatment. PAST MEDICAL HISTORY: Of uterine fibroids, anemia secondary to heavy menses due to her uterine fibroids, GERD, hypertension, bipolar, schizophrenia, polysubstance abuse, noncompliance with medications and followup. PAST SURGICAL HISTORY: x3, bilateral tubal ligation and cholecystectomy. FAMILY HISTORY: Positive for hypertension in both her parents. ALLERGIES: She has no known drug allergies. HOME MEDICATIONS: Omeprazole 40 mg p.o. daily. LABORATORY DATA: Showed a white blood cell count of 7.94, hemoglobin 6.9, hematocrit 25.3, platelets 391,000, PT and INR of 13.1 and 0.95. Sodium 140, potassium 4.4, chloride 102, CO2 21, BUN of 10, creatinine 0.6, glucose 112. Cardiac enzymes were negative. Lipase of 15. Plasma lactate initially was 3 repeat down to 2. Urinalysis was negative. Stool for occult blood negative. Influenza A and B were both negative. Chest x-ray showed no evidence of acute disease. EKG showed sinus tachycardia at 102. CT of the abdomen and pelvis showed an impression of an apparent fibroid uterus, increased intermediate density material and uterus compared to prior which may relate to fibroid necrosis. No bowel obstruction, no obvious appendicitis. No abscess, no free air. REVIEW OF SYSTEMS: She denied any fever, chills, blurred vision, dizziness. She did have body aches, some chest pain that radiated to her epigastric area with some nausea, vomiting and a nonproductive cough. Denied any constipation, diarrhea, burning or hurting with urination. PHYSICAL EXAMINATION: On arrival she had a temperature of 98.5 degrees, pulse 102, respirations 21, blood pressure 168/114, saturating 98% on room air. Currently blood pressure is down to 153/88. GENERAL: This is a 44-year-old female who is lying in the bed and answers questions appropriately. HEENT: Normocephalic, atraumatic. Normal ENT inspection. Oropharynx and nares are clear. Pupils are equal, round, reactive to light, accommodation. Extraocular movements are intact. NECK: Normal inspection, normal range of motion. LUNGS: Clear to auscultation bilaterally with equal lung expansion, chest wall movement. HEART: Regular rate and rhythm. No murmurs, rubs, or gallops. She was mildly tachycardic when she first arrived. ABDOMEN: Soft. There is some tenderness to the epigastric area with bowel sounds present x4 quadrants. MUSCULOSKELETAL: She had 5/5 strength x4 extremities. NEUROLOGICAL: The cranial nerves 2-12 appear grossly intact. ASSESSMENT: 1. Symptomatic anemia. 2. Hypertension. 3. Gastroesophageal reflux disease. 4. Uterine fibroids. 5. Noncompliance with medications and followup. OUR PLAN: She will be admitted to the medical unit placed on telemetry. Give her 2 units of packed red blood cells. Blood culture and urine culture are pending. She will receive Tylenol 650 mg p.o., Benadryl 25 mg IV x1 of each of those before starting her blood, in between her units will give her Lasix 20 mg IV x1. She will have normal saline at 75 mL an hour, regular diet and will continue her home medications, recheck CBC, BMP in the a.m. I am going to add Norvasc 5 mg p.o. daily to see if we can get her blood pressure little more under control. Further orders after seen by attending. Dictated by IRENE Ambrosio for Jean Claude García MD cc: IRENE Ambrosio MD Dr. Powell MTDD
[2019-10-10] MEDS: NORVASC PO SCH (19:14)
--- NOTE | 2019-10-10 19:56 | HISTORY AND PHYSICAL ---
ADDENDUM REPORT: The patient was seen and examined by myself. Full note dictated and discussed with nurse practitioner. Patient presented to the hospital with chest pain, epigastric area, nausea, vomiting, and body aches. She is noted to have anemia, most likely secondary to her uterine fibroids. She has been in the hospital a couple times in the past with this and has not really followed up with [facility]. Again, she notes that she has not followed up with [employer] [facility] because she is concerned about what they would do. Therefore, she has not followed up. We are going to admit, transfuse and follow. cc: Jean Claude García MD
[2019-10-11] MEDS: NS 1,000 ML IV SCH ×2 (00:05→11:43)
[2019-10-11 06:27] LABS: AGAP 13; BUN 8 mg/dL (8-22); CALCIUM 8.6 mg/dL (8.8-10.2); CHLORIDE 102 mmol/L (98-107); COSMO 272; CREATININE 0.7 mg/dL (0.5-0.9); ESTIMATED GFR > 60; GLUCOSE 101 mg/dL (70-104); POTASSIUM 3.4 mmol/L (3.5-5.1); SODIUM 137 mmol/L (136-145); TCO2 22 mmol/L (25-35)
[2019-10-11 06:37] LABS: BASO# 0.02 X1000 (0.0-0.2); BASO% 0.2 % (0.0-0.8); EOS# 0.01 X1000 (0.0-0.7); EOS% 0.1 % (0.0-10.0); HEMATOCRIT 28.1 % (37.0-47.0); HEMOGLOBIN 7.9 g/dL (12.0-16.0); IMM GRAN# 0.01 X1000 (0.0-0.04); IMM GRAN% 0.1 % (0.0-0.5); LYMPH# 1.91 X1000 (1.2-3.4); LYMPH% 20.6 % (20.5-51.1); MCH 19.7 PG (27-31); MCHC 28.1 g/dL (33-37); MCV 69.9 FL (81-99); MONO# 0.73 X1000 (0.11-0.59); MONO% 7.9 % (1.7-9.3); MPV 10.3 FL (7.4-10.4); NEUT% 71.1 % (42.2-75.2); PLT 287 X1000 (130-400); RBC 4.02 XMIL (4.2-5.4); RDW 22.3 % (11.5-14.5); WBC 9.28 X1000 (4.8-10.8)
[2019-10-11] MEDS ORDERED: PRILOSEC PO SCH (07:00)
[2019-10-11 07:42] LABS: ANISOCYTOSIS 2+; LYMPHS 14 % (21-51); MONO 3 % (1-9); POLYCHROM 1+; SEGS 83 % (42-75)
[2019-10-11 07:43] LABS: HYPOCHROM 1+; POIKILOCYTOSIS 1+
[2019-10-11 07:44] LABS: LARGE PLATELETS OCCASIONAL; MICROCYTOSIS 2+; TARGET CELLS 1+
[2019-10-11 08:31] VITALS: BP 157/84
[2019-10-11] MEDS: NORVASC PO SCH (09:34)
--- NOTE | 2019-10-11 14:29 | DISCHARGE SUMMARY ---
ADMISSION DATE: 10/10/2019 DISCHARGE DATE: 10/11/2019 PRIMARY CARE PROVIDER: 1. Dr. Brian Munoz Jr. ADMISSION DIAGNOSES: 1. Symptomatic anemia. 2. Hypertension. 3. Gastroesophageal reflux disease. 4. Uterine fibroids. 5. Noncompliance with medications and followup. DISCHARGE DIAGNOSES: 1. Anemia. 2. Uterine fibroids. 3. Hypertension. SUMMARY OF FINDINGS: Ms. Eason is a 44-year-old, -[place] female who presented to the ER on 10/10/2019 with a chief complaint of chest pain that radiated to her epigastric area. She also did have associated nausea and vomiting that began earlier that morning. She also complained of body aches and cough. Pertinent laboratory findings included a hemoglobin of 6.9, hematocrit 25.3. CK was 88. Troponin T high sensitivity was less than 6. ProBNP was 133. Her Hemoccult stool was negative. Her influenza screen was negative. Her urinalysis did show trace leukocytes and 1+ bacteria, though she was not reporting any urinary symptoms. A urine culture is pending at this time, though the preliminary reading did show no growth. Blood cultures were also collected as well, those are pending at this time also. EKG showed sinus tachycardia at a rate of 102 with a QTc of 461. Chest x-ray showed no evidence of acute disease. A CT abdomen and pelvis with IV contrast only was performed which did show apparent fibroid uterus. Increased intermediate density material in the uterus compared to prior, which may relate to fibroid necrosis. She was placed for admission to the medical unit on telemetry. She did get a transfusion of 2 units of packed red blood cells. She also did receive IV fluids as well. Her blood pressure was elevated some throughout her visit in the 160s and 150s systolically and in the 90s and 100 diastolically. She was placed on Norvasc 5 mg p.o. daily. Upon her recheck labs this morning, on October 11, 2019, her hemoglobin had improved to 7.9, hematocrit was 28.1. Her vital signs have remained stable. Her blood pressure has improved. Last vital signs this morning at 8:00 were a temperature of 98.3 degrees, heart rate 78, respirations 18, blood pressure was 157/84, oxygen saturation was 100% on room air. The patient's blood pressure prior to this has been maintaining in the 130s to 140s systolically and 80s diastolically. Since this blood pressure was taken, she did receive her morning dose of Norvasc 5 mg p.o. daily. After transfusion, the patient's hemoglobin and hematocrit had improved. Her vital signs are stable. She is hemodynamically stable. At this time it is felt that she is stable and can safely be discharged home. The patient has been instructed to follow up with her primary care provider Dr. Brian Munoz Jr. She will need to follow up with Gynecology as previously instructed for further evaluation and treatment concerning her uterine fibroids. The patient has been instructed to take [id number] iron supplement or vitamin with iron. She has also been instructed to contact her physician and/or return to the emergency department if her condition changes or if she has any symptoms that include, but are not limited to, shortness of breath, increased fatigue, excessive bleeding, unexplained weight loss or gain, unmanageable pain or signs and symptoms of infection. DISCHARGE MEDICATIONS: Include: 1. Tylenol 650 mg orally every 6 hours as needed for fever or pain. 2. Amlodipine 5 mg orally daily. 3. She is to continue her omeprazole 40 mg p.o. daily. FOLLOWUP: The patient has been instructed to followup with her primary care provider Dr. Brian Munoz Jr. Discharge time for this patient was 35 minutes. Dictated by IRENE Roman for Jean Claude García MD cc: Jean Claude García MD
--- NOTE | 2019-10-11 20:06 | DISCHARGE SUMMARY ---
ADMISSION DATE: 10/10/2019 DISCHARGE DATE: 10/11/2019 DISCHARGE DIAGNOSES: 1. Symptomatic anemia, resolved. 2. Hypertension. 3. Reflux. 4. Uterine fibroids. 5. Medical noncompliance. CONSULTATIONS: None. PROCEDURES: None. BRIEF HOSPITAL COURSE: The patient was admitted to the hospital, type and crossmatch and transfused. She received 1 unit. Hemoglobin and hematocrit increased to 7.9 and 28. Did discuss with patient again prior to discharge that she needs follow up as outpatient with [facility], or this will continue to happen. DISPOSITION: No changes were made. Discussed with patient the perils of smoking. Discussed the importance of following up outpatient with [facility]. TIME SPENT: Greater than 30 minutes was spent in total care. cc: Jean Claude García MD
== END 2019-10-11 11:52 | disposition home or self-care (01) | DRG 812 ==
LOC: P.ED 07:54 → P.MEDSURG 15:21
PROVIDERS: ATTEND Family Medicine